=== PATIENT | male | born 1960 | race Hispanic/Latino ===

== ENCOUNTER 2017-06-15 12:07 | Emergency (ER) | payer MEDICARE ==
[~2017-06-15 12:07] MED LIST: AMLO10TA2 PO; ASPI-1012 PO; DOXY100T2 PO; FOLI0.8T2 PO; GLYB5 PO; LINA5TAB PO; LISI40TA4 PO; METO50 PO; PENT400T12 PO
[2017-06-15] MEDS ORDERED: ONDANSETRON ODT 4 MG TAB ONE (12:36)
[2017-06-15 12:38] LABS: BASOPHILS % (AUTO) 0.3 % (0.0-5.0); EOSINOPHILS % (AUTO) 0.5 % (0.0-8.0); HEMATOCRIT 31.9 % (42-54); LYMPHOCYTES % (AUTO) 4.9 % (21.0-51.0); MEAN CORPUSCULAR HEMOGLOBIN 28.1 pg (27.0-33.0); MEAN CORPUSCULAR HGB CONC 33.7 g/dL (32.0-36.0); MEAN CORPUSCULAR VOLUME 83.4 fL (79-99); NEUTROPHILS % (AUTO) 88.3 % (40.0-77.0); PLATELET COUNT (AUTO) 289 K/uL (130-400); RED BLOOD CELL COUNT(AUTO) 3.83 MIL/uL (4.50-6.20); RED CELL DISTRIBUTION WIDTH 17.2 % (11.0-15.5); WHITE BLOOD COUNT (AUTO) 11.7 K/uL (4.8-10.8)
[2017-06-15 12:45] LABS: CREATININE 3.3 mg/dL (0.5-1.5); POTASSIUM 4.6 mmol/L (3.5-5.1)
[2017-06-15 12:51] LABS: ALBUMIN 3.7 g/dL (3.5-5.0); BILIRUBIN,TOTAL 0.5 mg/dL (0.2-1.0); TOTAL PROTEIN, SERUM 8.8 g/dL (6.0-8.3)
[2017-06-15 14:49] LABS: AMYLASE 31 U/L (25-115); CREATINE KINASE, TOTAL 130 U/L (21-232); INR 0.94 (0.85-1.15); LIPASE 88 U/L (114-286); PROTHROMBIN TIME 9.9 SEC (9.6-11.6)
== END 2017-06-15 16:39 | disposition home or self-care (01) ==
LOC: EDH 12:07
DX: K52.9 Noninfective gastroenteritis and colitis, unspecified (principal); E11.22 Type 2 diabetes mellitus with diabetic chronic kidney disease; I12.0 Hypertensive chronic kidney disease with stage 5 chronic kidney disease or end stage renal disease; N18.6 End stage renal disease; Z99.2 Dependence on renal dialysis
CPT/HCPCS: 36415; 71045; 80053; 82150; 82550; 82948; 83690; 85025; 85610; 85730; 93005

== ENCOUNTER 2018-05-25 20:57 | Emergency (ER) | payer MEDICARE ==
[~2018-05-25 20:57] MED LIST changes: -AMLO10TA2 PO; +AMLO10TA7 PO
[2018-05-25 21:38] LABS: APPEARANCE,URINE Clear (CLEAR); BILIRUBIN,URINE Negative (NEGATIVE); COLOR,URINE Yellow (YELLOW); GLUCOSE, URINE (UA) 500 mg/dL (NEGATIVE); KETONES,URINE Negative (NEGATIVE); LEUKOCYTE ESTERASE ,URINE Trace (NEGATIVE); NITRATE,URINE Negative (NEGATIVE); OCCULT BLOOD,URINE Moderate (NEGATIVE); PH,URINE 7.5 (5.0-8.0); PROTEIN,URINE >=1000 (NEGATIVE)
[2018-05-25 21:45] LABS: BACTERIA,URINE Few /HPF (None Seen); SQUAMOUS EPITHELIAL CELL,UR None Seen /HPF (0-2)
[2018-05-25 21:45] LABS: BASOPHILS % (AUTO) 0.7 % (0.0-5.0); EOSINOPHILS % (AUTO) 0.5 % (0.0-8.0); HEMATOCRIT 32.1 % (42-54); LYMPHOCYTES % (AUTO) 8.1 % (21.0-51.0); MEAN CORPUSCULAR HEMOGLOBIN 29.6 pg (27.0-33.0); MEAN CORPUSCULAR HGB CONC 33.8 g/dL (32.0-36.0); MEAN CORPUSCULAR VOLUME 87.3 fL (79-99); MONOCYTES % (AUTO) 10.3 % (3.0-13.0); NEUTROPHILS % (AUTO) 80.4 % (40.0-77.0); PLATELET COUNT (AUTO) 171 K/uL (130-400); RED BLOOD CELL COUNT(AUTO) 3.68 MIL/uL (4.50-6.20); RED CELL DISTRIBUTION WIDTH 16.5 % (11.0-15.5); WHITE BLOOD COUNT (AUTO) 9.7 K/uL (4.8-10.8)
[2018-05-25 22:04] LABS: INR 0.98 (0.85-1.15); PARTIAL THROMBOPLASTIN TIME 33.3 SEC (26.3-35.5); PROTHROMBIN TIME 10.3 SEC (9.6-11.6)
[2018-05-25 22:10] LABS: RAPID GROUP A STREP NEGATIVE (NEGATIVE)
[2018-05-25 22:13] LABS: ALANINE AMINOTRANSFERASE 16 U/L (12-78); ALBUMIN 3.5 g/dL (3.5-5.0); ASPARTATE AMINOTRANSFERASE 17 U/L (10-37); BILIRUBIN,TOTAL 0.5 mg/dL (0.2-1.0); CARBON DIOXIDE 26 mmol/L (21-32); CHLORIDE 91 mmol/L (101-111); CREATINE KINASE, TOTAL 196 U/L (21-232); GLOMERULAR FILTR. RATE CALC 7 mL/min (>60); GLUCOSE,RANDOM 317 mg/dL (70-105); MYOGLOBIN 452 ng/mL (10-92); POTASSIUM 4.8 mmol/L (3.5-5.1); SODIUM SERUM 129 mmol/L (136-145); TOTAL PROTEIN, SERUM 7.5 g/dL (6.0-8.3); TROPONIN I < 0.04 ng/mL (0.00-0.06); UREA NITROGEN, BLOOD 45 mg/dL (7-18)
[2018-05-25] MEDS ORDERED: ZOSYN 3.375GM+NS 50ML 50 ML IV ONE (22:17)
[2018-05-25] MEDS ORDERED: ACETAMINOPHEN 325 MG TAB ONE (22:17)
[2018-05-25] MEDS ORDERED: SODIUM CHLORIDE 0.9% 50 ML IV ONE (22:17)
[2018-05-25 22:25] LABS: CREATININE 8.1 mg/dL (0.5-1.5)
== END 2018-05-25 23:59 | disposition home or self-care (01) ==
LOC: EDH 20:57
DX: N39.0 Urinary tract infection, site not specified (principal); R05 Cough; E11.22 Type 2 diabetes mellitus with diabetic chronic kidney disease; I12.0 Hypertensive chronic kidney disease with stage 5 chronic kidney disease or end stage renal disease; N18.6 End stage renal disease; Z99.2 Dependence on renal dialysis; Z89.421 Acquired absence of other right toe(s)
CPT/HCPCS: 36415; 71045; 80053; 81001; 82550; 83605; 83874; 84484; 85025; 85610; 85730; 87040 ×2; 87077; 87088; 87186; 87804 ×2; 87880; 93005; 96365; 99284; J2543

== ENCOUNTER 2018-07-02 20:16 | Inpatient (IN) | payer MEDICARE, OTHER | END 2018-07-07 14:25 | disposition home or self-care (01) | LOC: EDH 20:16 → 3CH 07-03 14:20 → EDHIP 20:40 | DX: A41.9 Sepsis, unspecified organism (principal); J18.9 Pneumonia, unspecified organism; J96.01 Acute respiratory failure with hypoxia; N18.6 End stage renal disease; Z99.2 Dependence on renal dialysis ==

== ENCOUNTER 2018-07-24 17:56 | Inpatient (IN) | payer MEDICARE, OTHER ==
[~2018-07-24] VITALS: Ht 167.6 cm; Wt 1.0 kg
[~2018-07-24 17:56] MED LIST changes: -DOXY100T2 PO; +GLIP10TA9 PO; -GLYB5 PO; +LEVO500T2 PO; -LINA5TAB PO; -LISI40TA4 PO; +LOSA50TA64 PO; +SEVE800T7 PO
[2018-07-24] MEDS ORDERED: NITROGLYCERIN 1GM/1 INCH PACKET TD ONE (18:39)
[2018-07-24 18:53] LABS: CARBON DIOXIDE 28 mmol/L (21-32); CHLORIDE 94 mmol/L (101-111); CREATININE 5.4 mg/dL (0.5-1.5); GLOMERULAR FILTR. RATE CALC 12 mL/min (>60); GLUCOSE,RANDOM 321 mg/dL (70-105); POTASSIUM 4.1 mmol/L (3.5-5.1); SODIUM SERUM 133 mmol/L (136-145); UREA NITROGEN, BLOOD 34 mg/dL (7-18)
[2018-07-24 18:58] LABS: INR 1.02 (0.85-1.15); PARTIAL THROMBOPLASTIN TIME 30.7 SEC (26.3-35.5); PROTHROMBIN TIME 10.7 SEC (9.6-11.6)
[2018-07-24 19:00] LABS: BASOPHILS % (AUTO) 0.5 % (0.0-5.0); EOSINOPHILS % (AUTO) 0.2 % (0.0-8.0); HEMATOCRIT 28.9 % (42-54); LYMPHOCYTES % (AUTO) 3.2 % (21.0-51.0); MEAN CORPUSCULAR HEMOGLOBIN 28.1 pg (27.0-33.0); MEAN CORPUSCULAR HGB CONC 32.8 g/dL (32.0-36.0); MEAN CORPUSCULAR VOLUME 85.8 fL (79-99); MONOCYTES % (AUTO) 4.8 % (3.0-13.0); NEUTROPHILS % (AUTO) 91.3 % (40.0-77.0); PLATELET COUNT (AUTO) 248 K/uL (130-400); RED BLOOD CELL COUNT(AUTO) 3.37 MIL/uL (4.50-6.20); RED CELL DISTRIBUTION WIDTH 17.3 % (11.0-15.5); WHITE BLOOD COUNT (AUTO) 16.3 K/uL (4.8-10.8)
[2018-07-24 19:14] LABS: ALANINE AMINOTRANSFERASE 18 U/L (12-78); ALBUMIN 3.5 g/dL (3.5-5.0); ASPARTATE AMINOTRANSFERASE 20 U/L (10-37); BILIRUBIN,TOTAL 0.6 mg/dL (0.2-1.0); CREATINE KINASE, TOTAL 102 U/L (21-232); MYOGLOBIN 350 ng/mL (10-92); TOTAL PROTEIN, SERUM 8.1 g/dL (6.0-8.3); TROPONIN I < 0.04 ng/mL (0.00-0.06)
[2018-07-24] MEDS ORDERED: CEFTRIAXONE SODIUM 1 GM ONE (20:38)
[2018-07-24] MEDS ORDERED: AZITHROMYCIN 250 MG TABLET PO ONE (20:39)
[2018-07-24] MEDS ORDERED: SODIUM CHLORIDE 0.9% 1000ML 1,000 ML IV SCH (22:01)
[2018-07-24] MEDS ORDERED: ACETAMINOPHEN 325 MG TAB PO PRN ×2 (22:15)
[2018-07-24] MEDS: AZITHROMYCIN 500MG+NS 250ML 250 ML IV SCH (23:00)
[2018-07-24] MEDS: ALBUTEROL SULFATE 0.083% 2.5 MG/3 ML INH IH SCH (23:15)
[2018-07-25 03:29] LABS: APPEARANCE,URINE Cloudy (CLEAR); BILIRUBIN,URINE Small (NEGATIVE); COLOR,URINE Dark Yellow (YELLOW); GLUCOSE, URINE (UA) 500 mg/dL (NEGATIVE); KETONES,URINE Trace mg/dL (NEGATIVE); LEUKOCYTE ESTERASE ,URINE Small (NEGATIVE); NITRATE,URINE Negative (NEGATIVE); OCCULT BLOOD,URINE Small (NEGATIVE); PH,URINE 5.5 (5.0-8.0); PROTEIN,URINE >=1000 mg/dL (NEGATIVE)
[2018-07-25 03:39] LABS: AMORPHOUS SEDIMENT,UR Moderate /LPF (None Seen); BACTERIA,URINE Moderate /HPF (None Seen); MUCUS,URINE Few LPF (None Seen); SQUAMOUS EPITHELIAL CELL,UR Few /HPF (0-2); WBC,URINE 26-50 /HPF (0-1)
[2018-07-25] MEDS: ALBUTEROL SULFATE 0.083% 2.5 MG/3 ML INH IH SCH ×3 (05:36→18:41)
[2018-07-25] MEDS: METOPROLOL TARTRATE 50 MG TAB PO SCH ×2 (09:00→20:55)
[2018-07-25] MEDS: ENOXAPARIN SODIUM 30 MG/0.3 ML SQ SCH ×2 (09:00→20:57)
[2018-07-25] MEDS: FOLIC ACID/VITAMIN B COMP W-C 1 MG CAPSULE PO SCH (09:00)
[2018-07-25] MEDS: AMLODIPINE BESYLATE 5 MG TAB PO SCH (09:00)
[2018-07-25] MEDS: PENTOXIFYLLINE 400 MG TABLET.SA PO SCH ×2 (09:00→20:55)
[2018-07-25] MEDS: LOSARTAN 50 MG TABLET PO SCH (09:00)
[2018-07-25] MEDS: FAMOTIDINE/PF 20 MG/2 ML VIAL IV SCH ×2 (09:00→20:56)
[2018-07-25] MEDS ORDERED: SEVELAMER HCL 800 MG TABLET ONE (09:03)
[2018-07-25] MEDS ORDERED: AMLODIPINE BESYLATE 5 MG TAB PO ONE (10:32)
[2018-07-25] MEDS ORDERED: METOPROLOL TARTRATE 50 MG TAB ONE (10:32)
[2018-07-25] MEDS ORDERED: ENOXAPARIN SODIUM 30 MG/0.3 ML SQ ONE (10:33)
[2018-07-25] MEDS ORDERED: LOSARTAN 50 MG TABLET ONE (10:33)
[2018-07-25] MEDS ORDERED: FAMOTIDINE/PF 20 MG/2 ML VIAL IV ONE (10:34)
[2018-07-25] MEDS ORDERED: GLUCAGON 1MG KIT 1 MG ML IM PRN (10:45)
[2018-07-25] MEDS ORDERED: DEXTROSE 50%-WATER 50 ML DISP.SYRIN IV PRN (10:45)
--- NOTE | 2018-07-25 10:51 | NUR ---
CHRISTINE met with pt and Erika [phone]. Pt is independent, drives, goes to [facility], [facility], drives self, has walker no in home care services, has rx coverages. Plan is home at vt Addendum: 07/25/18 at 1052 by ARELI SINGH Amended: Links added.
[2018-07-25] MEDS ORDERED: IPRATROPIUM/ALBUTEROL SULFATE 3 ML SOLUTION IH ONE (11:13)
[2018-07-25 12:00] VITALS: BP 145/82
[2018-07-25 16:00] VITALS: BP 140/73
[2018-07-25] MEDS: INSULIN HUMULIN R 100 UNIT/ML 3ML SQ SCH ×2 (17:17→20:52)
[2018-07-25] MEDS: SEVELAMER HCL 800 MG TABLET PO SCH (17:19)
[2018-07-25 19:20] VITALS: BP 123/72
[2018-07-25] MEDS: CEFTRIAXONE SODIUM 1 GM IVP SCH (20:56)
[2018-07-26] MEDS: AZITHROMYCIN 500MG+NS 250ML 250 ML IV SCH ×2 (00:08→21:22)
[2018-07-26] MEDS: ALBUTEROL SULFATE 0.083% 2.5 MG/3 ML INH IH SCH ×4 (00:28→19:00)
[2018-07-26 00:30] VITALS: BP 124/77
[2018-07-26 04:35] VITALS: BP 138/80
[2018-07-26 06:14] LABS: BASOPHILS % (AUTO) 0.8 % (0.0-5.0); EOSINOPHILS % (AUTO) 0.6 % (0.0-8.0); HEMATOCRIT 24.7 % (42-54); LYMPHOCYTES % (AUTO) 11.1 % (21.0-51.0); MEAN CORPUSCULAR HEMOGLOBIN 28.9 pg (27.0-33.0); MEAN CORPUSCULAR HGB CONC 33.5 g/dL (32.0-36.0); MEAN CORPUSCULAR VOLUME 86.4 fL (79-99); MONOCYTES % (AUTO) 8.9 % (3.0-13.0); NEUTROPHILS % (AUTO) 78.6 % (40.0-77.0); NUCLEATED RED BLOOD CELLS 0.1 % (0.0-0.19); PLATELET COUNT (AUTO) 203 K/uL (130-400); RED BLOOD CELL COUNT(AUTO) 2.85 MIL/uL (4.50-6.20); RED CELL DISTRIBUTION WIDTH 17.4 % (11.0-15.5); WHITE BLOOD COUNT (AUTO) 9.5 K/uL (4.8-10.8)
[2018-07-26 06:38] LABS: CREATININE 8.2 mg/dL (0.5-1.5)
[2018-07-26] MEDS: INSULIN HUMULIN R 100 UNIT/ML 3ML SQ SCH ×4 (06:54→21:44)
[2018-07-26 07:00] VITALS: BP 146/85
--- NOTE | 2018-07-26 08:00 | NUR ---
PATIENT IS ALERT AND STABLE, HEMODIALYSIS TREATMENT IS IN PROGRESS AT THIS TIME, PATIENT REQUESTS TO TAKE HIS MEDICATIONS AFTER THE TREATMENT. PLAN OF CARE DISCUSSED WITH VERBALIZATION OF UNDERSTANDING.
[2018-07-26] MEDS ORDERED: SODIUM CHLORIDE 0.9% 1000ML 1,000 ML IV PRN (08:15)
[2018-07-26] MEDS ORDERED: EPOETIN ALFA 10,000 UNIT/ML VIAL SQ SCH (10:15)
--- NOTE | 2018-07-26 10:32 | NUR ---
HEMODIALYSIS TREATMENT IS COMPLETED AT THIS TIME, WILL ADMINISTER MORNING MEDS.
[2018-07-26] MEDS: SEVELAMER HCL 800 MG TABLET PO SCH ×3 (10:35→17:43)
[2018-07-26] MEDS: FAMOTIDINE/PF 20 MG/2 ML VIAL IV SCH ×2 (10:36→21:21)
[2018-07-26] MEDS: METOPROLOL TARTRATE 50 MG TAB PO SCH ×2 (10:36→21:21)
[2018-07-26] MEDS: FOLIC ACID/VITAMIN B COMP W-C 1 MG CAPSULE PO SCH (10:36)
[2018-07-26] MEDS: AMLODIPINE BESYLATE 5 MG TAB PO SCH (10:37)
[2018-07-26] MEDS: PENTOXIFYLLINE 400 MG TABLET.SA PO SCH ×2 (10:37→21:21)
[2018-07-26] MEDS: LOSARTAN 50 MG TABLET PO SCH (10:37)
[2018-07-26] MEDS: ENOXAPARIN SODIUM 30 MG/0.3 ML SQ SCH ×2 (10:41→21:22)
[2018-07-26 11:00] VITALS: BP 138/87
[2018-07-26] MEDS: GUAIFENESIN-CODEINE 5 ML SYRUP PO PRN (15:36)
[2018-07-26 16:00] VITALS: BP 128/66
[2018-07-26] MEDS: ONDANSETRON HCL 4 MG/2 ML VIAL IV PRN (17:49)
[2018-07-26 19:30] VITALS: BP 135/68
[2018-07-26] MEDS: CEFTRIAXONE SODIUM 1 GM IVP SCH (21:21)
[2018-07-27] MEDS: ALBUTEROL SULFATE 0.083% 2.5 MG/3 ML INH IH SCH ×5 (00:04→23:45)
[2018-07-27 00:11] VITALS: BP 115/62
[2018-07-27 04:33] VITALS: BP 114/59
[2018-07-27] MEDS: INSULIN HUMULIN R 100 UNIT/ML 3ML SQ SCH ×4 (05:34→21:51)
[2018-07-27 05:41] LABS: MEAN CORPUSCULAR HEMOGLOBIN 28.8 pg (27.0-33.0); MEAN CORPUSCULAR HGB CONC 33.3 g/dL (32.0-36.0); MEAN CORPUSCULAR VOLUME 86.7 fL (79-99); NUCLEATED RED BLOOD CELLS 0.2 % (0.0-0.19); PLATELET COUNT (AUTO) 211 K/uL (130-400); RED BLOOD CELL COUNT(AUTO) 2.65 MIL/uL (4.50-6.20); RED CELL DISTRIBUTION WIDTH 17.5 % (11.0-15.5); WHITE BLOOD COUNT (AUTO) 8.6 K/uL (4.8-10.8)
[2018-07-27 06:02] LABS: CREATININE 6.3 mg/dL (0.5-1.5); POTASSIUM 4.7 mmol/L (3.5-5.1)
[2018-07-27 07:00] VITALS: BP 132/78
[2018-07-27 08:28] LABS: HEPATITIS Bs ANTIGEN SCREEN P Negative (Negative)
[2018-07-27] MEDS: SEVELAMER HCL 800 MG TABLET PO SCH ×3 (08:39→16:52)
[2018-07-27] MEDS: FAMOTIDINE/PF 20 MG/2 ML VIAL IV SCH ×2 (08:40→21:41)
[2018-07-27] MEDS: PENTOXIFYLLINE 400 MG TABLET.SA PO SCH ×2 (08:42→21:41)
[2018-07-27] MEDS: FOLIC ACID/VITAMIN B COMP W-C 1 MG CAPSULE PO SCH (08:42)
[2018-07-27] MEDS: METOPROLOL TARTRATE 50 MG TAB PO SCH ×2 (08:43→21:41)
[2018-07-27] MEDS: AMLODIPINE BESYLATE 5 MG TAB PO SCH (08:43)
[2018-07-27] MEDS: LOSARTAN 50 MG TABLET PO SCH (08:44)
[2018-07-27] MEDS: ENOXAPARIN SODIUM 30 MG/0.3 ML SQ SCH ×2 (08:46→21:46)
[2018-07-27 11:00] VITALS: BP 129/67
[2018-07-27] MEDS: EPOETIN ALFA 10,000 UNIT/ML VIAL SQ SCH ×2 (11:45→18:34)
[2018-07-27] MEDS: GUAIFENESIN-CODEINE 5 ML SYRUP PO PRN (12:21)
[2018-07-27] MEDS: ONDANSETRON HCL 4 MG/2 ML VIAL IV PRN (12:23)
--- NOTE | 2018-07-27 12:26 | NUR ---
REPORTED EMESIS EPISODES X 2, OBSERVED YELLOW BILE WITH FOOD PARTICLES. MEDICATED WITH ZOFRAN IV.
[2018-07-27 16:00] VITALS: BP 127/94
[2018-07-27 19:25] VITALS: BP 113/61
[2018-07-27] MEDS: CEFTRIAXONE SODIUM 1 GM IVP SCH (21:41)
[2018-07-27] MEDS: AZITHROMYCIN 500MG+NS 250ML 250 ML IV SCH (21:41)
[2018-07-28 00:28] VITALS: BP 99/69
[2018-07-28 04:25] VITALS: BP 125/75
[2018-07-28] MEDS: INSULIN HUMULIN R 100 UNIT/ML 3ML SQ SCH ×4 (05:11→21:46)
[2018-07-28] MEDS: ALBUTEROL SULFATE 0.083% 2.5 MG/3 ML INH IH SCH ×4 (06:26→23:24)
[2018-07-28] MEDS: SEVELAMER HCL 800 MG TABLET PO SCH ×3 (08:00→16:43)
[2018-07-28 09:01] VITALS: BP 159/87
[2018-07-28] MEDS: AMLODIPINE BESYLATE 5 MG TAB PO SCH (10:06)
[2018-07-28] MEDS: METOPROLOL TARTRATE 50 MG TAB PO SCH ×2 (10:07→21:39)
[2018-07-28] MEDS: LOSARTAN 50 MG TABLET PO SCH (10:07)
[2018-07-28] MEDS: MEROPENEM 500 MG VIAL IVP SCH (10:07)
[2018-07-28] MEDS: PENTOXIFYLLINE 400 MG TABLET.SA PO SCH ×2 (10:07→21:39)
[2018-07-28] MEDS: FAMOTIDINE/PF 20 MG/2 ML VIAL IV SCH ×2 (10:07→21:39)
[2018-07-28] MEDS: FOLIC ACID/VITAMIN B COMP W-C 1 MG CAPSULE PO SCH (10:07)
[2018-07-28] MEDS: ENOXAPARIN SODIUM 30 MG/0.3 ML SQ SCH ×2 (10:08→21:40)
[2018-07-28 12:59] VITALS: BP 144/83
--- NOTE | 2018-07-28 13:00 | NUR ---
MD ROUNDS DR. WITT VISITED WITH PATIENT. POC DISCUSSED. NEW ORDERS RECEIVED AND CARRIED OUT.
[2018-07-28] MEDS: LEVOFLOXACIN 500 MG/D5W 100 ML 100 ML IV SCH (16:44)
[2018-07-28 17:15] VITALS: BP 129/88
[2018-07-28 20:22] VITALS: BP 136/84
[2018-07-29 00:48] VITALS: BP 128/74
[2018-07-29 04:07] VITALS: BP 143/83
[2018-07-29] MEDS: INSULIN HUMULIN R 100 UNIT/ML 3ML SQ SCH ×4 (05:58→21:00)
[2018-07-29] MEDS: ALBUTEROL SULFATE 0.083% 2.5 MG/3 ML INH IH SCH ×4 (07:11→23:35)
[2018-07-29 08:00] VITALS: BP 137/63
[2018-07-29] MEDS: FOLIC ACID/VITAMIN B COMP W-C 1 MG CAPSULE PO SCH (08:28)
[2018-07-29] MEDS: METOPROLOL TARTRATE 50 MG TAB PO SCH ×2 (08:28→22:14)
[2018-07-29] MEDS: SEVELAMER HCL 800 MG TABLET PO SCH ×3 (08:28→16:13)
[2018-07-29] MEDS: PENTOXIFYLLINE 400 MG TABLET.SA PO SCH ×2 (08:28→22:14)
[2018-07-29] MEDS: ENOXAPARIN SODIUM 30 MG/0.3 ML SQ SCH ×2 (08:29→22:20)
[2018-07-29] MEDS: LOSARTAN 50 MG TABLET PO SCH (08:29)
[2018-07-29] MEDS: AMLODIPINE BESYLATE 5 MG TAB PO SCH (08:29)
[2018-07-29] MEDS: FAMOTIDINE/PF 20 MG/2 ML VIAL IV SCH ×2 (08:29→22:14)
[2018-07-29] MEDS: MEROPENEM 500 MG VIAL IVP SCH (08:34)
[2018-07-29] MEDS: GUAIFENESIN-CODEINE 5 ML SYRUP PO PRN (08:38)
[2018-07-29 12:00] VITALS: BP 131/74
[2018-07-29] MEDS: ONDANSETRON HCL 4 MG/2 ML VIAL IV PRN (14:56)
[2018-07-29] MEDS: EPOETIN ALFA 10,000 UNIT/ML VIAL SQ SCH (14:56)
[2018-07-29 16:00] VITALS: BP 136/77
[2018-07-29] MEDS ORDERED: PROMETHAZINE HCL 25 MG/ML 1ML AMPULE IM PRN (16:00)
--- NOTE | 2018-07-29 16:02 | NUR ---
SNF: Spoke w pt and spouse this afternoon to discuss MD recommendations for poss SNF @ [place]. Discussed all options avail in [place]. Per pt/spouse they are interested in [facility]. YG/PC consents signed. Referral faxed to [facility]. Sobeida made aware.
[2018-07-29 21:23] VITALS: BP 159/85
[2018-07-30 00:34] VITALS: BP 153/86
[2018-07-30 03:36] VITALS: BP 133/78
[2018-07-30] MEDS: INSULIN HUMULIN R 100 UNIT/ML 3ML SQ SCH ×4 (05:42→21:00)
[2018-07-30] MEDS: ALBUTEROL SULFATE 0.083% 2.5 MG/3 ML INH IH SCH ×3 (06:40→18:00)
[2018-07-30] MEDS: SEVELAMER HCL 800 MG TABLET PO SCH ×3 (09:00→16:38)
[2018-07-30] MEDS: LOSARTAN 50 MG TABLET PO SCH (09:27)
[2018-07-30] MEDS: AMLODIPINE BESYLATE 5 MG TAB PO SCH (09:27)
[2018-07-30] MEDS: PENTOXIFYLLINE 400 MG TABLET.SA PO SCH ×2 (09:27→20:56)
[2018-07-30] MEDS: ONDANSETRON HCL 4 MG/2 ML VIAL IV PRN ×2 (09:27→22:55)
[2018-07-30] MEDS: FAMOTIDINE/PF 20 MG/2 ML VIAL IV SCH ×2 (09:27→20:57)
[2018-07-30] MEDS: METOPROLOL TARTRATE 50 MG TAB PO SCH ×2 (09:27→20:56)
[2018-07-30] MEDS: FOLIC ACID/VITAMIN B COMP W-C 1 MG CAPSULE PO SCH (09:27)
[2018-07-30] MEDS: ENOXAPARIN SODIUM 30 MG/0.3 ML SQ SCH ×2 (09:28→20:57)
[2018-07-30] MEDS: MEROPENEM 500 MG VIAL IVP SCH (09:34)
[2018-07-30 10:08] VITALS: BP 163/96
[2018-07-30] MEDS: EPOETIN ALFA 10,000 UNIT/ML VIAL SQ SCH (11:45)
[2018-07-30] MEDS: LEVOFLOXACIN 500 MG/D5W 100 ML 100 ML IV SCH (12:23)
[2018-07-30 12:59] VITALS: BP 145/77
[2018-07-30 16:59] VITALS: BP 114/64
[2018-07-30 21:31] VITALS: BP 145/79
[2018-07-31] VITALS (7 sets, daily range): BP systolic 119–164; BP diastolic 51–96
[2018-07-31] MEDS: ALBUTEROL SULFATE 0.083% 2.5 MG/3 ML INH IH SCH ×5 (00:03→23:04)
[2018-07-31] MEDS: INSULIN HUMULIN R 100 UNIT/ML 3ML SQ SCH ×4 (06:54→21:04)
[2018-07-31 07:05] LABS: BASOPHILS % (AUTO) 0.5 % (0.0-5.0); EOSINOPHILS % (AUTO) 0.8 % (0.0-8.0); HEMATOCRIT 25.4 % (42-54); LYMPHOCYTES % (AUTO) 11.3 % (21.0-51.0); MEAN CORPUSCULAR HEMOGLOBIN 28.6 pg (27.0-33.0); MEAN CORPUSCULAR HGB CONC 33.3 g/dL (32.0-36.0); MEAN CORPUSCULAR VOLUME 85.8 fL (79-99); MONOCYTES % (AUTO) 8.6 % (3.0-13.0); NEUTROPHILS % (AUTO) 78.8 % (40.0-77.0); NUCLEATED RED BLOOD CELLS 0.3 % (0.0-0.19); PLATELET COUNT (AUTO) 268 K/uL (130-400); RED BLOOD CELL COUNT(AUTO) 2.96 MIL/uL (4.50-6.20); RED CELL DISTRIBUTION WIDTH 17.8 % (11.0-15.5); WHITE BLOOD COUNT (AUTO) 7.8 K/uL (4.8-10.8)
--- NOTE | 2018-07-31 07:09 | NUR ---
VENEER STOCK GRADER MALISSA, VENEER STOCK GRADER FOR HOSPITALIST, IN TO MAKE ROUNDS. NEW ORDERS GIVEN, PLEASE REFER TO CPOE.
[2018-07-31 07:41] LABS: POTASSIUM 4.3 mmol/L (3.5-5.1)
[2018-07-31 07:48] LABS: CREATININE 9.5 mg/dL (0.5-1.5)
[2018-07-31] MEDS: AMLODIPINE BESYLATE 5 MG TAB PO SCH (09:00)
[2018-07-31] MEDS: METOPROLOL TARTRATE 50 MG TAB PO SCH ×2 (09:00→20:58)
[2018-07-31] MEDS: LOSARTAN 50 MG TABLET PO SCH (09:00)
[2018-07-31] MEDS: ENOXAPARIN SODIUM 30 MG/0.3 ML SQ SCH ×2 (09:00→20:57)
[2018-07-31] MEDS: SEVELAMER HCL 800 MG TABLET PO SCH ×3 (09:08→17:06)
[2018-07-31] MEDS: PENTOXIFYLLINE 400 MG TABLET.SA PO SCH ×2 (09:08→20:58)
[2018-07-31] MEDS: FOLIC ACID/VITAMIN B COMP W-C 1 MG CAPSULE PO SCH (09:08)
[2018-07-31] MEDS: FAMOTIDINE/PF 20 MG/2 ML VIAL IV SCH ×2 (09:21→20:57)
[2018-07-31] MEDS: MEROPENEM 500 MG VIAL IVP SCH (10:52)
[2018-07-31] MEDS: EPOETIN ALFA 10,000 UNIT/ML VIAL SQ SCH (17:06)
--- NOTE | 2018-07-31 20:34 | NUR ---
cm note spoke to dakota at [facility], pt is accepted, when ready for dc. pt pending for juan david surgery.
[2018-08-01] VITALS (19 sets, daily range): BP systolic 133–189; BP diastolic 59–101
[2018-08-01 05:58] LABS: BASOPHILS % (AUTO) 0.9 % (0.0-5.0); EOSINOPHILS % (AUTO) 1.2 % (0.0-8.0); HEMATOCRIT 25.8 % (42-54); LYMPHOCYTES % (AUTO) 8.8 % (21.0-51.0); MEAN CORPUSCULAR HEMOGLOBIN 28.5 pg (27.0-33.0); MEAN CORPUSCULAR HGB CONC 32.9 g/dL (32.0-36.0); MEAN CORPUSCULAR VOLUME 86.7 fL (79-99); NEUTROPHILS % (AUTO) 78.1 % (40.0-77.0); NUCLEATED RED BLOOD CELLS 0.2 % (0.0-0.19); PLATELET COUNT (AUTO) 300 K/uL (130-400); RED BLOOD CELL COUNT(AUTO) 2.97 MIL/uL (4.50-6.20); RED CELL DISTRIBUTION WIDTH 18.1 % (11.0-15.5); WHITE BLOOD COUNT (AUTO) 7.5 K/uL (4.8-10.8)
[2018-08-01 06:15] LABS: CREATININE 6.5 mg/dL (0.5-1.5); POTASSIUM 4.7 mmol/L (3.5-5.1)
[2018-08-01] MEDS: INSULIN HUMULIN R 100 UNIT/ML 3ML SQ SCH ×4 (06:32→20:26)
[2018-08-01] MEDS: ALBUTEROL SULFATE 0.083% 2.5 MG/3 ML INH IH SCH ×4 (06:43→23:12)
[2018-08-01] MEDS: ENOXAPARIN SODIUM 30 MG/0.3 ML SQ SCH ×2 (09:00→19:58)
[2018-08-01] MEDS: MEROPENEM 500 MG VIAL IVP SCH ×2 (09:27→10:12)
[2018-08-01] MEDS ORDERED: HEPARIN SODIUM 1000UNIT/ML 10ML VIAL ONE (09:48)
[2018-08-01] MEDS ORDERED: LIDOCAINE PF 2% 5ML ABBOJECT ONE (10:34)
[2018-08-01] MEDS ORDERED: DEXAMETHASONE SOD PHOSPHATE 10MG/ML 1ML VIAL ONE (10:34)
[2018-08-01] MEDS ORDERED: PROPOFOL 10 MG/ML 20ML VIAL IV ONE (10:34)
[2018-08-01] MEDS ORDERED: ONDANSETRON HCL 4 MG/2 ML VIAL ONE (10:34)
[2018-08-01] MEDS ORDERED: MIDAZOLAM HCL 1 MG/ML 2ML VIAL ONE (10:34)
[2018-08-01] MEDS ORDERED: FENTANYL CITRATE PF 50 MCG/1 ML 2ML VIAL ONE (10:35)
[2018-08-01] MEDS ORDERED: ROCURONIUM 10MG/1ML SYR 10 MG/ML ML ONE (10:55)
[2018-08-01] MEDS ORDERED: GLYCOPYRROLATE 1 MG/5 ML SYRINGE ONE (11:23)
[2018-08-01] MEDS ORDERED: NEOSTIGMINE 5MG/5ML SYR IV ONE (11:24)
[2018-08-01] MEDS ORDERED: SODIUM CHLORIDE 0.9% 1000ML 1,000 ML IV SCH (11:28)
[2018-08-01] MEDS ORDERED: MORPHINE SULFATE 2 MG/ML 1ML SYG IV PRN (11:30)
[2018-08-01] MEDS ORDERED: MEPERIDINE-PF 25 MG/ML SYG ONE (11:52)
[2018-08-01] MEDS: SEVELAMER HCL 800 MG TABLET PO SCH ×3 (12:00→16:12)
[2018-08-01] MEDS: ONDANSETRON HCL 4 MG/2 ML VIAL IV PRN (12:42)
[2018-08-01] MEDS: FOLIC ACID/VITAMIN B COMP W-C 1 MG CAPSULE PO SCH (13:12)
[2018-08-01] MEDS: LOSARTAN 50 MG TABLET PO SCH (13:13)
[2018-08-01] MEDS: PENTOXIFYLLINE 400 MG TABLET.SA PO SCH ×2 (13:13→19:57)
[2018-08-01] MEDS: AMLODIPINE BESYLATE 5 MG TAB PO SCH (13:13)
[2018-08-01] MEDS: METOPROLOL TARTRATE 50 MG TAB PO SCH ×2 (13:13→19:57)
[2018-08-01] MEDS: FAMOTIDINE/PF 20 MG/2 ML VIAL IV SCH ×2 (13:14→19:57)
--- NOTE | 2018-08-01 16:11 | NUR ---
INTERVAL NOTE- DCP REMAINS [facility] SPOKE TO SERJIO FROM [facility], PT ACCEPTED PENDING AUTH , NOW HAVING [facility] KEL[facility]IN TODAY- POSS DC 24-48 HRS. Addendum: 08/01/18 at 1612 by KALYN CAPUTO RN CM Amended: Links added.
[2018-08-01] MEDS: LEVOFLOXACIN 500 MG/D5W 100 ML 100 ML IV SCH (16:12)
--- NOTE | 2018-08-01 17:18 | NUR ---
Nutrition intervention : Nutrition notification for los X8. Pt admitted for RLL pneumonia. Pt currently on CC75gm, Renal dialysis diet with good oral intake. At time of RD visit pt returned from cholecystectomy and asleep. Pt's at bedside provided nutritional feedback however no nutritional concerns noted. RD to return when pt is awake and alert for additional nutrition intervention. Recommendations: Continue current diet therapy. Addendum: 08/01/18 at [address] Amended: Links added.
[2018-08-02 00:32] VITALS: BP 137/81
[2018-08-02 04:00] VITALS: BP 132/84
[2018-08-02 04:40] VITALS: BP 132/84
[2018-08-02] MEDS: INSULIN HUMULIN R 100 UNIT/ML 3ML SQ SCH ×3 (06:04→17:12)
[2018-08-02] MEDS: ALBUTEROL SULFATE 0.083% 2.5 MG/3 ML INH IH SCH ×3 (06:24→18:30)
[2018-08-02 06:28] LABS: BASOPHILS % (AUTO) 0.5 % (0.0-5.0); EOSINOPHILS % (AUTO) 1.1 % (0.0-8.0); HEMATOCRIT 25.2 % (42-54); LYMPHOCYTES % (AUTO) 8.6 % (21.0-51.0); MEAN CORPUSCULAR HEMOGLOBIN 28.7 pg (27.0-33.0); MEAN CORPUSCULAR HGB CONC 33.2 g/dL (32.0-36.0); MEAN CORPUSCULAR VOLUME 86.5 fL (79-99); NEUTROPHILS % (AUTO) 78.8 % (40.0-77.0); NUCLEATED RED BLOOD CELLS 0.1 % (0.0-0.19); PLATELET COUNT (AUTO) 295 K/uL (130-400); RED BLOOD CELL COUNT(AUTO) 2.92 MIL/uL (4.50-6.20); RED CELL DISTRIBUTION WIDTH 17.9 % (11.0-15.5); WHITE BLOOD COUNT (AUTO) 8.5 K/uL (4.8-10.8)
[2018-08-02 06:39] LABS: POTASSIUM 4.8 mmol/L (3.5-5.1)
[2018-08-02 06:42] LABS: CREATININE 8.2 mg/dL (0.5-1.5)
[2018-08-02 08:00] VITALS: BP 139/76
[2018-08-02] MEDS: FAMOTIDINE/PF 20 MG/2 ML VIAL IV SCH (09:22)
[2018-08-02] MEDS: SEVELAMER HCL 800 MG TABLET PO SCH ×3 (09:23→17:08)
[2018-08-02] MEDS: FOLIC ACID/VITAMIN B COMP W-C 1 MG CAPSULE PO SCH (09:23)
[2018-08-02 12:00] VITALS: BP 147/80
[2018-08-02] MEDS: METOPROLOL TARTRATE 50 MG TAB PO SCH (12:55)
[2018-08-02] MEDS: AMLODIPINE BESYLATE 5 MG TAB PO SCH (12:55)
[2018-08-02] MEDS: PENTOXIFYLLINE 400 MG TABLET.SA PO SCH (12:55)
[2018-08-02] MEDS: LOSARTAN 50 MG TABLET PO SCH (12:55)
[2018-08-02] MEDS: ENOXAPARIN SODIUM 30 MG/0.3 ML SQ SCH (12:58)
--- NOTE | 2018-08-02 18:19 | NUR ---
DISCHARGE INSTRUCTIONS GIVEN. REPORT GIVEN TO FRANCISCA FIGUEROA AT [facility]. ALL QUESTIONS ANSWERED. IV WILL STAY IN PER FRANCISCA FIGUEROA STATED TO KEEP IN TO CONTINUE IV ANTIBIOTICS AT [facility]. HERE TO TRANSPORT PATIENT TO [facility].. INSTRUCTED PATIENT TO KEEP APPOINTMENT WITH DR. BURKS ON AUGUST 16, AT 9:45
== END 2018-08-02 18:54 | DRG 853 ==
LOC: EDH 17:56 → EDHIP 21:25 → 3CH 07-25 11:36
PROVIDERS: ADMIT Internal Medicine; ATTEND Internal Medicine
PROC: 5A1D70Z Performance of Urinary Filtration, Intermittent, Less than 6 Hours Per Day (ICD-10-PCS; 2018-07-26)
PROC: 5A1D70Z Performance of Urinary Filtration, Intermittent, Less than 6 Hours Per Day (ICD-10-PCS; 2018-07-28)
PROC: 5A1D70Z Performance of Urinary Filtration, Intermittent, Less than 6 Hours Per Day (ICD-10-PCS; 2018-07-31)
PROC: 0FT44ZZ Resection of Gallbladder, Percutaneous Endoscopic Approach (ICD-10-PCS; principal; 2018-08-01 10:32)
PROC: 5A1D70Z Performance of Urinary Filtration, Intermittent, Less than 6 Hours Per Day (ICD-10-PCS; 2018-08-02)
DX: A41.50 Gram-negative sepsis, unspecified (principal); J18.1 Lobar pneumonia, unspecified organism; N18.6 End stage renal disease; N17.9 Acute kidney failure, unspecified; N39.0 Urinary tract infection, site not specified; I12.0 Hypertensive chronic kidney disease with stage 5 chronic kidney disease or end stage renal disease; Z68.1 Body mass index [BMI] 19.9 or less, adult; I31.3 Pericardial effusion (noninflammatory); J98.11 Atelectasis; E11.65 Type 2 diabetes mellitus with hyperglycemia; E87.70 Fluid overload, unspecified; E11.22 Type 2 diabetes mellitus with diabetic chronic kidney disease; B96.20 Unspecified Escherichia coli [E. coli] as the cause of diseases classified elsewhere; K81.1 Chronic cholecystitis; E66.9 Obesity, unspecified; E78.00 Pure hypercholesterolemia, unspecified; K82.8 Other specified diseases of gallbladder; D63.8 Anemia in other chronic diseases classified elsewhere; Z16.24 Resistance to multiple antibiotics; Z16.12 Extended spectrum beta lactamase (ESBL) resistance; Z99.2 Dependence on renal dialysis; Z89.421 Acquired absence of other right toe(s); Z87.01 Personal history of pneumonia (recurrent); Z86.19 Personal history of other infectious and parasitic diseases; Z83.3 Family history of diabetes mellitus; Z82.49 Family history of ischemic heart disease and other diseases of the circulatory system; Z82.3 Family history of stroke; Z82.0 Family history of epilepsy and other diseases of the nervous system
CPT/HCPCS: 36415; 71045; 71250; 74176; 76705; 78227; 80048; 80053; 81001; 82040; 82550; 82570; 82948; 83605; 83874; 84300; 84484; 85025; 85027; 85610; 85730; 86701; 86704; 86706; 87040; 87077; 87088; 87186; 87340; 87390; 87520; 87804; 90935; 93005; 94640; 94664; 97039; A4218; A9537; G0378; J0456; J0696; J0885; J1100; J1644; J1650; J1815; J1956; J2001; J2175; J2185; J2250; J2405; J2704; J2710; J3010; J3490; J7030

== ENCOUNTER 2019-01-10 18:28 | Emergency (ER) | payer MEDICARE ==
[~2019-01-10 18:28] MED LIST changes: +ALBU1.252 IH; +BENZ-39 PO; -FOLI0.8T2 PO; +FOLI0.8T43 PO; +LACT10SO9 PO; +MELA1TAB28 PO; -PENT400T12 PO; +PENT400T72 PO
[2019-01-10 19:19] LABS: APPEARANCE,URINE TURBID (CLEAR); BILIRUBIN,URINE SMALL (NEGATIVE); COLOR,URINE RED (YELLOW); GLUCOSE, URINE (UA) >=1000 mg/dL (NEGATIVE); KETONES,URINE NEGATIVE (NEGATIVE); LEUKOCYTE ESTERASE ,URINE TRACE (NEGATIVE); NITRATE,URINE POSITIVE (NEGATIVE); OCCULT BLOOD,URINE LARGE (NEGATIVE); PROTEIN,URINE >=300 mg/dL (NEGATIVE); UROBILINOGEN,URINE 0.2 mg/dL (0.2-1.0)
[2019-01-10 19:24] LABS: BACTERIA,URINE Rare /HPF (None Seen); RBC,URINE TNTC /HPF (0-1); SQUAMOUS EPITHELIAL CELL,UR Rare /HPF (0-2)
[2019-01-10] MEDS ORDERED: LIDOCAINE HCL-MPF 1% 2ML VIAL ONE ×2 (19:34)
[2019-01-10] MEDS ORDERED: CEFTRIAXONE SODIUM 1 GM ONE (19:34)
== END 2019-01-10 19:44 | disposition home or self-care (01) ==
LOC: EDH 18:28
DX: N39.0 Urinary tract infection, site not specified (principal); R31.9 Hematuria, unspecified; I12.0 Hypertensive chronic kidney disease with stage 5 chronic kidney disease or end stage renal disease; E11.22 Type 2 diabetes mellitus with diabetic chronic kidney disease; N18.6 End stage renal disease; Z90.49 Acquired absence of other specified parts of digestive tract; Z99.2 Dependence on renal dialysis
CPT/HCPCS: 81001; 87077; 87088; 87186; 96372; 99284; J0696; J3490 ×2

== ENCOUNTER 2019-02-22 11:48 | Day surgery (SDC) | payer MEDICARE ==
[2019-02-20 12:22] LABS: BASOPHILS % (AUTO) 1.2 % (0.0-5.0); HEMATOCRIT 32.4 % (42-54); MEAN CORPUSCULAR HEMOGLOBIN 31.8 pg (27.0-33.0); MEAN CORPUSCULAR HGB CONC 33.6 g/dL (32.0-36.0); MEAN CORPUSCULAR VOLUME 94.7 fL (79-99); MONOCYTES % (AUTO) 8.9 % (3.0-13.0); NEUTROPHILS % (AUTO) 60.9 % (40.0-77.0); NUCLEATED RED BLOOD CELLS 0.5 % (0.0-0.19); PLATELET COUNT (AUTO) 252 K/uL (130-400); RED BLOOD CELL COUNT(AUTO) 3.42 MIL/uL (4.50-6.20); RED CELL DISTRIBUTION WIDTH 16.2 % (11.0-15.5); WHITE BLOOD COUNT (AUTO) 8.2 K/uL (4.8-10.8)
[2019-02-20 12:31] LABS: INR 0.96 (0.85-1.15); PROTHROMBIN TIME 10.1 SEC (9.6-11.6)
[2019-02-20 12:34] LABS: POTASSIUM 5.2 mmol/L (3.5-5.1)
[2019-02-20 12:38] LABS: CREATININE 7.9 mg/dL (0.5-1.5)
[2019-02-20 12:50] VITALS: BP 121/65
[2019-02-20 14:01] LABS: APPEARANCE,URINE Cloudy (CLEAR); BILIRUBIN,URINE Negative (NEGATIVE); COLOR,URINE Yellow (YELLOW); GLUCOSE, URINE (UA) 500 mg/dL (NEGATIVE); KETONES,URINE Negative (NEGATIVE); LEUKOCYTE ESTERASE ,URINE Moderate (NEGATIVE); NITRATE,URINE Negative (NEGATIVE); OCCULT BLOOD,URINE Moderate (NEGATIVE); PROTEIN,URINE >=1000 mg/dL (NEGATIVE); UROBILINOGEN,URINE 0.2 mg/dL (0.2-1.0)
[2019-02-20 14:25] LABS: BACTERIA,URINE Moderate /HPF (None Seen); RBC,URINE 26-50 /HPF (0-1); WBC,URINE 51-100 /HPF (0-1)
--- NOTE | 2019-02-21 10:24 | NUR ---
REPORTED H/H 10.9/32.4, NA 130, K 5.2, BUN 46 , BAND TEACHER 7.9, NO NEW ORDERS PER FANNY AMARAL
[2019-02-22] VITALS (8 sets, daily range): BP systolic 136–161; BP diastolic 65–89
[~2019-02-22] VITALS: Ht 170.2 cm; Wt 90.9 kg
[~2019-02-22 11:48] MED LIST changes: -ALBU1.252 IH; -ASPI-1012 PO; -BENZ-39 PO; +CLOP75TA14 PO; -FOLI0.8T43 PO; +FOLI1TAB85 PO; +FURO40TA5 PO; -LACT10SO9 PO; -LEVO500T2 PO; -MELA1TAB28 PO; -METO50 PO; +SODIUM CHLORIDE 0.9% 500ML 500 ML IV SCH
[2019-02-22] MEDS ORDERED: METOPROLOL PO (12:10)
[2019-02-22] MEDS ORDERED: SODIUM CHLORIDE 0.9% 1000ML 1,000 ML IV ONE (12:17)
[2019-02-22] MEDS ORDERED: METO50TA18 PO (12:48)
[2019-02-22] MEDS ORDERED: INSULIN HUMULIN R 100 UNIT/ML 3ML ONE (13:34)
[2019-02-22] MEDS ORDERED: INSULIN HUMULIN R 100 UNIT/ML 3ML SQ SCH (13:45)
--- NOTE | 2019-02-22 13:46 | NUR ---
BLOOD SUGAR BLOOD SUGAR OF 325 AT [address] DOVE, ORDERS TO GIVE 10 UNITS OF REGULAR INSULIN IV THEN RECHECK BLOOD SUGAR IN AN HOUR. REGULAR INSULIN 10 UNITS GIVEN IV. WILL CONTINUE TO MONITOR PT.
[2019-02-22] MEDS ORDERED: MIDAZOLAM HCL 1 MG/ML 2ML VIAL ONE (16:24)
[2019-02-22] MEDS ORDERED: IOHEXOL-350 75 ML VIAL IV ONE (16:24)
[2019-02-22] MEDS ORDERED: IOHEXOL-350 50ML VIAL IV ONE (16:24)
[2019-02-22] MEDS ORDERED: FENTANYL CITRATE PF 50 MCG/1 ML 2ML VIAL ONE (16:25)
[2019-02-22] MEDS ORDERED: LIDOCAINE HCL 2% 20ML ONE (16:25)
[2019-02-22] MEDS ORDERED: HEPARIN SODIUM 1000UNIT/ML 10ML VIAL ONE (16:25)
[2019-02-22] MEDS ORDERED: NITROGLYCERIN 5 MG/ML 10 ML VIAL IV ONE (16:31)
[2019-02-22] MEDS ORDERED: IODIXANOL 320 MG/ML 100 ML VIAL ONE (17:18)
[2019-02-22] MEDS ORDERED: LABETALOL 20 MG/4 ML DISP.SYRIN IV ONE (17:56)
[2019-02-22] MEDS ORDERED: DEXTROSE 50%-WATER 50 ML DISP.SYRIN IV PRN (18:00)
[2019-02-22] MEDS ORDERED: GLUCAGON 1MG KIT 1 MG ML IM PRN (18:00)
[2019-02-22] MEDS ORDERED: LABETALOL HCL 5 MG/ML 20ML VIAL IV ONE (18:01)
--- NOTE | 2019-02-22 19:33 | NUR ---
DIET PT TOLERATED RENAL DIET WELL.
--- NOTE | 2019-02-22 19:55 | NUR ---
DISCHARGE PT DISCHARGED VIA WHEELCHAIR WITH . PT STABLE. NO COMPLAINTS MADE. CATH SITE TO RIGHT GROIN REMAINS SOFT, DRESSING DRY AND INTACT, NO OOZING NO HEMATOMA NOTED. DISCHARGE INSTRUCTIONS GIVEN TO AND PT, VERBALIZED UNDERSTANDING. PER PT/, PT DOES NOT URINATE MUCH, VOIDS VERY SELDOM AND VERY LITTLE.
== END 2019-02-22 19:55 | disposition home or self-care (01) ==
LOC: DAH 11:48
PROVIDERS: ATTEND Internal Medicine Cardiovascular Disease
DX: I70.213 Atherosclerosis of native arteries of extremities with intermittent claudication, bilateral legs (principal); I25.10 Atherosclerotic heart disease of native coronary artery without angina pectoris; E78.5 Hyperlipidemia, unspecified; I12.0 Hypertensive chronic kidney disease with stage 5 chronic kidney disease or end stage renal disease; E11.22 Type 2 diabetes mellitus with diabetic chronic kidney disease; N18.6 End stage renal disease; E03.9 Hypothyroidism, unspecified; Z79.84 Long term (current) use of oral hypoglycemic drugs; Z79.899 Other long term (current) drug therapy; Z83.3 Family history of diabetes mellitus; Z82.49 Family history of ischemic heart disease and other diseases of the circulatory system; Z82.3 Family history of stroke
CPT/HCPCS: 36415; 71045; 75716; 80048; 81001; 82948 ×4; 85025; 85610; 85730; 93005; 93458; 96374; A4215; A4216; A4221; A4222; A4223 ×3; A4606; A4663; C1760; C1769; C1894 ×3; J1644; J1815; J3490 ×3; J7030; Q9967 ×3; J2250; J3010

== ENCOUNTER 2019-06-05 23:36 | Emergency (ER) | payer MEDICARE ==
[~2019-06-05 23:36] MED LIST changes: +METO50TA18 PO; -SODIUM CHLORIDE 0.9% 500ML 500 ML IV SCH
[2019-06-06 00:09] LABS: BASOPHILS % (AUTO) 0.8 % (0.0-5.0); EOSINOPHILS % (AUTO) 1.2 % (0.0-8.0); HEMATOCRIT 34.1 % (42-54); MEAN CORPUSCULAR HGB CONC 33.1 g/dL (32.0-36.0); MEAN CORPUSCULAR VOLUME 87.7 fL (79-99); MONOCYTES % (AUTO) 13.9 % (3.0-13.0); NEUTROPHILS % (AUTO) 73.5 % (40.0-77.0); PLATELET COUNT (AUTO) 261 K/uL (130-400); RED BLOOD CELL COUNT(AUTO) 3.89 MIL/uL (4.50-6.20); RED CELL DISTRIBUTION WIDTH 16.3 % (11.0-15.5); WHITE BLOOD COUNT (AUTO) 12.1 K/uL (4.8-10.8)
[2019-06-06 00:32] LABS: ALBUMIN 3.9 g/dL (3.5-5.0); BILIRUBIN,TOTAL 0.4 mg/dL (0.2-1.0); POTASSIUM 5.2 mmol/L (3.5-5.1); TOTAL PROTEIN, SERUM 8.3 g/dL (6.0-8.3)
[2019-06-06 00:33] LABS: B-TYPE NATRIURETIC PEPTIDE 312 pg/mL (0-100)
[2019-06-06 00:37] LABS: CREATININE 9.2 mg/dL (0.5-1.5)
[2019-06-06] MEDS ORDERED: INSULIN HUMULIN R 100 UNIT/ML 3ML ONE (01:38)
[2019-06-06] MEDS ORDERED: BENZONATATE 100 MG CAPSULE PO ONE (01:38)
== END 2019-06-06 02:15 | disposition home or self-care (01) ==
LOC: EDH 23:36
DX: J06.9 Acute upper respiratory infection, unspecified (principal); E11.65 Type 2 diabetes mellitus with hyperglycemia; I12.0 Hypertensive chronic kidney disease with stage 5 chronic kidney disease or end stage renal disease; E11.22 Type 2 diabetes mellitus with diabetic chronic kidney disease; N18.6 End stage renal disease; Z99.2 Dependence on renal dialysis; Z90.49 Acquired absence of other specified parts of digestive tract
CPT/HCPCS: 36415; 71045; 80053; 82550; 83880; 84484; 85025; 87804 ×2; 93005; 96374; 99285; J1815

== ENCOUNTER → 2020-04-17 | Outpatient (CLI) | payer MEDICARE ==
[~2020-04-17] MED LIST changes: +AMLO-258 PO; -AMLO10TA7 PO
[2020-04-17 10:40] LABS: HEMATOCRIT 37.1 % (42-54); MEAN CORPUSCULAR HEMOGLOBIN 28.6 pg (27.0-33.0); MEAN CORPUSCULAR HGB CONC 31.8 g/dL (32.0-36.0); RED BLOOD CELL COUNT(AUTO) 4.12 MIL/uL (4.50-6.20); RED CELL DISTRIBUTION WIDTH 15.3 % (11.0-15.5); WHITE BLOOD COUNT (AUTO) 10.1 K/uL (4.8-10.8)
[2020-04-17 11:01] LABS: INR 0.93 (0.85-1.15); PARTIAL THROMBOPLASTIN TIME 25.4 SEC (26.3-35.5); PROTHROMBIN TIME 10.1 SEC (9.6-11.6)
[2020-04-17 11:05] LABS: CREATININE 7.9 mg/dL (0.5-1.5)
== END | disposition home or self-care (01) ==
LOC: LAB 08:54
PROVIDERS: ATTEND Ophthalmology Retina Specialist
DX: H43.13 Vitreous hemorrhage, bilateral (principal)
CPT/HCPCS: 36415; 80048; 85027; 85610; 85730

== ENCOUNTER → 2020-04-22 | Outpatient (CLI) | payer MEDICARE ==
[~2020-04-22] MED LIST changes: +ATOR40TA71 PO
== END | disposition home or self-care (01) ==
LOC: LAB 11:22
PROVIDERS: ATTEND Specialist
DX: I12.0 Hypertensive chronic kidney disease with stage 5 chronic kidney disease or end stage renal disease (principal); E11.22 Type 2 diabetes mellitus with diabetic chronic kidney disease; N18.6 End stage renal disease; I25.10 Atherosclerotic heart disease of native coronary artery without angina pectoris; Z99.2 Dependence on renal dialysis
CPT/HCPCS: 36415; 84132

== ENCOUNTER 2020-06-24 05:18 | Inpatient (IN) | payer MEDICARE ==
[~2020-06-24 05:18] MED LIST changes: -ATOR40TA71 PO
[2020-06-24 06:52] LABS: ABG BASE EXCESS -0.9 mmol/L (-2.0-3.0); ABG HCO3 23.2 mmol/L (21.0-28.0); ABG OXYGEN SATURATION 88.8 % (95.0-99.0); ABG PCO2 37 mmHg (35-48)
[2020-06-24 07:36] LABS: BASOPHILS % (AUTO) 0.8 % (0.0-5.0); EOSINOPHILS % (AUTO) 0.6 % (0.0-8.0); HEMATOCRIT 28.1 % (42-54); LYMPHOCYTES % (AUTO) 13.9 % (21.0-51.0); MEAN CORPUSCULAR HEMOGLOBIN 28.3 pg (27.0-33.0); MEAN CORPUSCULAR HGB CONC 32.4 g/dL (32.0-36.0); MEAN CORPUSCULAR VOLUME 87.5 fL (79-99); MONOCYTES % (AUTO) 7.4 % (3.0-13.0); NEUTROPHILS % (AUTO) 76.8 % (40.0-77.0); PLATELET COUNT (AUTO) 188 K/uL (130-400); RED BLOOD CELL COUNT(AUTO) 3.21 MIL/uL (4.50-6.20); RED CELL DISTRIBUTION WIDTH 15.4 % (11.0-15.5); WHITE BLOOD COUNT (AUTO) 12.7 K/uL (4.8-10.8)
[2020-06-24 07:48] LABS: ALBUMIN 3.5 g/dL (3.5-5.0); BILIRUBIN,TOTAL 0.6 mg/dL (0.2-1.0); INR 1.05 (0.85-1.15); POTASSIUM 5.3 mmol/L (3.5-5.1); PROTHROMBIN TIME 11.4 SEC (9.6-11.6); TOTAL PROTEIN, SERUM 7.7 g/dL (6.0-8.3)
[2020-06-24 08:00] LABS: CREATININE 11.8 mg/dL (0.5-1.5)
[2020-06-24 08:13] LABS: B-TYPE NATRIURETIC PEPTIDE 2250 pg/mL (0-100)
[2020-06-24 08:19] LABS: PARTIAL THROMBOPLASTIN TIME 18.6 SEC (26.3-35.5)
[2020-06-24] MEDS ORDERED: CEFTRIAXONE 1G VIAL ONE ×2 (08:52→20:34)
[2020-06-24] MEDS ORDERED: AZITHROMYCIN 500MG+NS 250ML 250 ML IV ONE (09:57)
[2020-06-24] MEDS ORDERED: GLUCAGON 1MG KIT 1 MG ML IM PRN (10:15)
[2020-06-24] MEDS: DOXYCYCLINE 100MG+NS 250ML 250 ML IV SCH (10:15)
[2020-06-24] MEDS ORDERED: DEXTROSE 50%-WATER 50 ML DISP.SYRIN IV PRN (10:15)
[2020-06-24] MEDS: INSULIN HUMULIN R 100 UNIT/ML 3ML SQ SCH ×3 (11:30→21:00)
[2020-06-24] MEDS ORDERED: DOXYCYCLINE 100MG+NS 250ML 250 ML IV ONE ×2 (14:29→20:34)
[2020-06-24] MEDS ORDERED: INSULIN HUMULIN R 100 UNIT/ML 3ML ONE (20:37)
[2020-06-24] MEDS: CEFTRIAXONE 1G VIAL IVP SCH (21:00)
[2020-06-25] VITALS (7 sets, daily range): BP systolic 91–154; BP diastolic 53–80
[2020-06-25] MEDS ORDERED: ATOR40TA71 PO (04:03)
[2020-06-25] MEDS: DOXYCYCLINE 100MG+NS 250ML 250 ML IV SCH ×2 (04:44→07:59)
[2020-06-25 05:24] LABS: BASOPHILS % (AUTO) 1.3 % (0.0-5.0); EOSINOPHILS % (AUTO) 3.1 % (0.0-8.0); HEMATOCRIT 27.8 % (42-54); LYMPHOCYTES % (AUTO) 20.2 % (21.0-51.0); MEAN CORPUSCULAR HEMOGLOBIN 29.1 pg (27.0-33.0); MEAN CORPUSCULAR HGB CONC 32.7 g/dL (32.0-36.0); MEAN CORPUSCULAR VOLUME 88.8 fL (79-99); MONOCYTES % (AUTO) 8.6 % (3.0-13.0); NEUTROPHILS % (AUTO) 66.4 % (40.0-77.0); PLATELET COUNT (AUTO) 320 K/uL (130-400); RED BLOOD CELL COUNT(AUTO) 3.13 MIL/uL (4.50-6.20); RED CELL DISTRIBUTION WIDTH 15.7 % (11.0-15.5); WHITE BLOOD COUNT (AUTO) 7.7 K/uL (4.8-10.8)
[2020-06-25 05:55] LABS: ALBUMIN 3.1 g/dL (3.5-5.0); BILIRUBIN,TOTAL 0.5 mg/dL (0.2-1.0); POTASSIUM 4.5 mmol/L (3.5-5.1); TOTAL PROTEIN, SERUM 7.3 g/dL (6.0-8.3)
[2020-06-25 06:02] LABS: CREATININE 9.5 mg/dL (0.5-1.5)
[2020-06-25] MEDS: INSULIN HUMULIN R 100 UNIT/ML 3ML SQ SCH ×6 (06:47→21:30)
[2020-06-25] MEDS: CEFTRIAXONE 1G VIAL IVP SCH ×2 (08:32→21:14)
[2020-06-25] MEDS: SEVELAMER HCL 800 MG TABLET PO SCH ×2 (11:53→17:11)
[2020-06-25] MEDS: GUAIFENESIN-DM 200/20 MG 10 ML PO PRN (17:44)
[2020-06-25] MEDS ORDERED: ATORVASTATIN 40 MG TABLET PO SCH (21:00)
[2020-06-25] MEDS: METOPROLOL TARTRATE 50 MG TAB PO SCH (21:15)
[2020-06-26] MEDS: GUAIFENESIN-DM 200/20 MG 10 ML PO PRN (00:06)
[2020-06-26 03:00] VITALS: BP 133/72
[2020-06-26] MEDS ORDERED: DOXYCYCLINE 100MG+NS 250ML 250 ML IV ONE (04:41)
[2020-06-26] MEDS ORDERED: DOXYCYCLINE 100MG+NS 250ML 250 ML IV SCH (05:00)
[2020-06-26 05:13] LABS: BASOPHILS % (AUTO) 1.3 % (0.0-5.0); EOSINOPHILS % (AUTO) 3.8 % (0.0-8.0); HEMATOCRIT 29.8 % (42-54); LYMPHOCYTES % (AUTO) 23.5 % (21.0-51.0); MEAN CORPUSCULAR HEMOGLOBIN 28.5 pg (27.0-33.0); MEAN CORPUSCULAR HGB CONC 31.9 g/dL (32.0-36.0); MEAN CORPUSCULAR VOLUME 89.5 fL (79-99); MONOCYTES % (AUTO) 10.1 % (3.0-13.0); NEUTROPHILS % (AUTO) 61.2 % (40.0-77.0); PLATELET COUNT (AUTO) 346 K/uL (130-400); RED BLOOD CELL COUNT(AUTO) 3.33 MIL/uL (4.50-6.20); RED CELL DISTRIBUTION WIDTH 15.6 % (11.0-15.5); WHITE BLOOD COUNT (AUTO) 7.7 K/uL (4.8-10.8)
[2020-06-26] MEDS: INSULIN HUMULIN R 100 UNIT/ML 3ML SQ SCH ×2 (05:26→05:58)
[2020-06-26 05:36] LABS: ALBUMIN 3.2 g/dL (3.5-5.0); BILIRUBIN,TOTAL 0.4 mg/dL (0.2-1.0); POTASSIUM 4.1 mmol/L (3.5-5.1); TOTAL PROTEIN, SERUM 7.6 g/dL (6.0-8.3)
[2020-06-26 05:43] LABS: CREATININE 8.5 mg/dL (0.5-1.5)
[2020-06-26 08:00] VITALS: BP 148/80
[2020-06-26] MEDS: SEVELAMER HCL 800 MG TABLET PO SCH (08:51)
[2020-06-26] MEDS: METOPROLOL TARTRATE 50 MG TAB PO SCH (08:51)
[2020-06-26] MEDS: CEFTRIAXONE 1G VIAL IVP SCH (08:52)
[2020-06-26] MEDS ORDERED: CLOPIDOGREL 75MG TAB PO SCH (09:00)
[2020-06-26] MEDS ORDERED: AMLODIPINE 5 MG TAB PO SCH (09:00)
[2020-06-26] MEDS ORDERED: Vitamin B Complex/Vit C/Folic Acid PO SCH (09:00)
[2020-06-26] MEDS ORDERED: LOSARTAN 50 MG TABLET PO SCH (09:00)
== END 2020-06-26 10:52 | disposition home or self-care (01) | DRG 189 ==
LOC: EDH 05:18 → EDHIP 10:06 → 2DH 06-25 01:21
PROVIDERS: ADMIT Hospitalist; ATTEND Hospitalist
PROC: 5A1D70Z Performance of Urinary Filtration, Intermittent, Less than 6 Hours Per Day (ICD-10-PCS; principal; 2020-06-22)
PROC: 5A1D70Z Performance of Urinary Filtration, Intermittent, Less than 6 Hours Per Day (ICD-10-PCS; 2020-06-25)
DX: J96.01 Acute respiratory failure with hypoxia (principal); N18.6 End stage renal disease; I12.0 Hypertensive chronic kidney disease with stage 5 chronic kidney disease or end stage renal disease; N17.9 Acute kidney failure, unspecified; E87.1 Hypo-osmolality and hyponatremia; E11.22 Type 2 diabetes mellitus with diabetic chronic kidney disease; E87.5 Hyperkalemia; I25.10 Atherosclerotic heart disease of native coronary artery without angina pectoris; I44.0 Atrioventricular block, first degree; Z20.822 Contact with and (suspected) exposure to COVID-19; Z99.2 Dependence on renal dialysis; Z91.15 Patient's noncompliance with renal dialysis; Z89.429 Acquired absence of other toe(s), unspecified side; Z90.49 Acquired absence of other specified parts of digestive tract; Z82.0 Family history of epilepsy and other diseases of the nervous system; Z82.3 Family history of stroke; Z83.3 Family history of diabetes mellitus; Z82.49 Family history of ischemic heart disease and other diseases of the circulatory system
CPT/HCPCS: 36415; 36600; 71045; 71250; 80053; 82803; 82948; 83605; 83880; 84145; 84484; 85025; 85378; 85610; 85730; 87040; 87426; 87804; 90935; 93005; G0378; J0456; J0696; J1815; J3490; U0003

== ENCOUNTER 2020-12-28 22:28 | Inpatient (IN) | payer MEDICARE ==
[~2020-12-28] VITALS: Ht 165.1 cm; Wt 95.9 kg
[~2020-12-28 22:28] MED LIST changes: +ATOR40TA71 PO
[2020-12-28 22:55] VITALS: BP 143/64
[2020-12-29] VITALS (16 sets, daily range): BP systolic 117–168; BP diastolic 36–102
[2020-12-29] MEDS ORDERED: ZOSYN 3.375GM +NS 50ML IV ONE
[2020-12-29 00:07] LABS: INR 1.02 (0.85-1.15); PROTHROMBIN TIME 11.1 SEC (9.6-11.6)
[2020-12-29 00:08] LABS: PARTIAL THROMBOPLASTIN TIME 29.6 SEC (26.3-35.5)
[2020-12-29 00:15] LABS: BASOPHILS % (AUTO) 0.7 % (0.0-5.0); EOSINOPHILS % (AUTO) 1.5 % (0.0-8.0); HEMATOCRIT 32.3 % (42-54); LYMPHOCYTES % (AUTO) 11.1 % (21.0-51.0); MEAN CORPUSCULAR HEMOGLOBIN 28.5 pg (27.0-33.0); MEAN CORPUSCULAR HGB CONC 33.1 g/dL (32.0-36.0); MEAN CORPUSCULAR VOLUME 86.1 fL (79-99); MONOCYTES % (AUTO) 6.5 % (3.0-13.0); NEUTROPHILS % (AUTO) 79.7 % (40.0-77.0); PLATELET COUNT (AUTO) 523 K/uL (130-400); RED BLOOD CELL COUNT(AUTO) 3.75 MIL/uL (4.50-6.20); RED CELL DISTRIBUTION WIDTH 15.6 % (11.0-15.5); WHITE BLOOD COUNT (AUTO) 21.1 K/uL (4.8-10.8)
[2020-12-29 00:27] LABS: B-TYPE NATRIURETIC PEPTIDE 773 pg/mL (0-100)
[2020-12-29 00:32] LABS: ALBUMIN 3.4 g/dL (3.5-5.0); BILIRUBIN,TOTAL 0.3 mg/dL (0.2-1.0)
[2020-12-29 00:40] LABS: CREATININE 10.5 mg/dL (0.5-1.5); POTASSIUM 6.6 mmol/L (3.5-5.1)
[2020-12-29] MEDS ORDERED: 0.9%NACL 50ML 50 ML IV ONE (00:47)
[2020-12-29] MEDS ORDERED: INSULIN HUMULIN R 100 UNIT/ML 3ML SQ STA (01:03)
[2020-12-29] MEDS ORDERED: ACETAMINOPHEN 325 MG TAB PO PRN ×2 (01:30)
[2020-12-29] MEDS ORDERED: ACETAMINOPHEN WITH CODEINE 1 TAB TAB PO PRN (01:30)
[2020-12-29] MEDS ORDERED: KAYEXALATE 15GM/60ML PO ONE ×2 (01:30→02:00)
[2020-12-29] MEDS ORDERED: NITROGLYCERIN 0.4 MG SL TAB SL PRN (01:30)
[2020-12-29] MEDS ORDERED: RENAL DOSE IV SCH (01:30)
[2020-12-29] MEDS ORDERED: GLUCAGON 1MG KIT 1 MG ML IM PRN (01:30)
[2020-12-29] MEDS ORDERED: DEXTROSE 50%-WATER 50 ML DISP.SYRIN IV PRN (01:30)
[2020-12-29 01:33] LABS: MAGNESIUM 2.4 mg/dL (1.80-2.40); PHOSPHORUS 4.6 mg/dL (2.5-4.9)
[2020-12-29 01:54] LABS: HEMOGLOBIN A1C 12.6 % (4.0-6.0)
[2020-12-29] MEDS ORDERED: HEPARIN 5,000 UNIT VIAL SQ SCH (02:30)
[2020-12-29] MEDS ORDERED: INSULIN HUMULIN R 100 UNIT/ML 3ML ONE (04:07)
[2020-12-29] MEDS ORDERED: INSULIN HUMULIN R 100 UNIT/ML 3ML SQ ONE (04:30)
[2020-12-29] MEDS ORDERED: GLIP10TA9 PO (05:34)
[2020-12-29] MEDS ORDERED: AEC81 PO (05:34)
[2020-12-29] MEDS ORDERED: SEVE800T7 PO (05:34)
[2020-12-29] MEDS ORDERED: FOLI1TAB85 PO (05:34)
[2020-12-29] MEDS ORDERED: PANT40TA54 PO (05:34)
[2020-12-29] MEDS ORDERED: GABA-529 PO (05:34)
[2020-12-29] MEDS ORDERED: ATOR40TA69 PO (05:35)
[2020-12-29] MEDS ORDERED: METO50TA18 PO (05:35)
[2020-12-29] MEDS ORDERED: LINE600T14 PO (05:35)
[2020-12-29] MEDS ORDERED: CLOP75TA32 PO (05:35)
[2020-12-29] MEDS ORDERED: FURO40TA5 PO (05:35)
[2020-12-29] MEDS ORDERED: LOSA50TA64 PO (05:35)
[2020-12-29 07:25] LABS: HEMATOCRIT 31.4 % (42-54); MEAN CORPUSCULAR HEMOGLOBIN 27.8 pg (27.0-33.0); MEAN CORPUSCULAR HGB CONC 32.2 g/dL (32.0-36.0); MEAN CORPUSCULAR VOLUME 86.5 fL (79-99); PLATELET COUNT (AUTO) 508 K/uL (130-400); RED BLOOD CELL COUNT(AUTO) 3.63 MIL/uL (4.50-6.20); RED CELL DISTRIBUTION WIDTH 15.6 % (11.0-15.5); WHITE BLOOD COUNT (AUTO) 17.4 K/uL (4.8-10.8)
[2020-12-29 07:44] LABS: BILIRUBIN,TOTAL 0.3 mg/dL (0.2-1.0); MAGNESIUM 2.5 mg/dL (1.80-2.40); PHOSPHORUS 5.3 mg/dL (2.5-4.9); TOTAL PROTEIN, SERUM 8.1 g/dL (6.0-8.3)
[2020-12-29 07:48] LABS: CREATININE 11.3 mg/dL (0.5-1.5)
[2020-12-29 08:02] LABS: EOSINOPHILS % (MANUAL) 3 % (1-6); LYMPHOCYTES % (MANUAL) 21 % (22-44); MAN.DIFF COMMENT-IMPRESSION MANUAL DIFFERENTIAL; MONOCYTES % (MANUAL) 1 % (2-9); SEGMENTED NEUTROPHILS % 75 % (40-70)
[2020-12-29 08:03] LABS: PLATELET MORPHOLOGY COMMENT MARKED INCREASE
[2020-12-29] MEDS: INSULIN HUMULIN R 100 UNIT/ML 3ML SQ SCH ×3 (09:00→16:30)
[2020-12-29] MEDS ORDERED: VANCOMYCIN PROTOCOL PER PHARMACY IV SCH (09:30)
[2020-12-29] MEDS: FAMOTIDINE 20MG TAB PO SCH (09:42)
[2020-12-29] MEDS: HEPARIN 25,000 UNITS/250ML D5W 250 ML IV SCH (09:58)
[2020-12-29] MEDS ORDERED: COMPOUND IV REFRIGERATED 1 EACH IVSOLN MISC PRN (10:00)
[2020-12-29] MEDS: VANCOMYCIN 1.5GM/NS 250ML IV SCH ×2 (10:58)
[2020-12-29 15:43] LABS: INR 1.06 (0.85-1.15); PROTHROMBIN TIME 11.5 SEC (9.6-11.6)
[2020-12-29 22:26] LABS: INR 1.01 (0.85-1.15)
[2020-12-30] VITALS (9 sets, daily range): BP systolic 116–161; BP diastolic 47–86
[2020-12-30] MEDS: METOPROLOL TARTRATE 50 MG TAB PO SCH ×3 (00:30→20:24)
[2020-12-30] MEDS: INSULIN HUMULIN R 100 UNIT/ML 3ML SQ SCH ×5 (00:30→20:35)
[2020-12-30] MEDS: ZOSYN 3.375GM +NS 50ML IV SCH ×3 (00:30→20:24)
[2020-12-30 01:45] LABS: INR 1.03 (0.85-1.15); PROTHROMBIN TIME 11.2 SEC (9.6-11.6)
[2020-12-30 01:46] LABS: PARTIAL THROMBOPLASTIN TIME 69.8 SEC (26.3-35.5)
[2020-12-30] MEDS: HEPARIN 25,000 UNITS/250ML D5W 250 ML IV SCH ×2 (04:51→20:38)
[2020-12-30] MEDS: FAMOTIDINE 20MG TAB PO SCH (08:20)
[2020-12-30] MEDS ORDERED: LOSARTAN 50 MG TABLET PO SCH (09:00)
[2020-12-30] MEDS ORDERED: ATORVASTATIN 40 MG TABLET PO SCH (09:00)
[2020-12-30 12:02] LABS: INR 1.09 (0.85-1.15); PROTHROMBIN TIME 11.8 SEC (9.6-11.6)
[2020-12-30 12:03] LABS: PARTIAL THROMBOPLASTIN TIME 56.7 SEC (26.3-35.5)
[2020-12-30] MEDS ORDERED: IOHEXOL-350 50ML VIAL IV ONE (13:25)
[2020-12-30] MEDS ORDERED: IOHEXOL 350 MG/ML 100ML INFUS..BTL IV ONE (13:25)
[2020-12-31] VITALS (20 sets, daily range): BP systolic 106–163; BP diastolic 62–97
[2020-12-31 05:15] LABS: INR 1.1 (0.85-1.15); PROTHROMBIN TIME 11.9 SEC (9.6-11.6)
[2020-12-31 05:16] LABS: PARTIAL THROMBOPLASTIN TIME 76.8 SEC (26.3-35.5)
[2020-12-31] MEDS: INSULIN HUMULIN R 100 UNIT/ML 3ML SQ SCH ×4 (06:46→21:13)
[2020-12-31 07:31] LABS: BASOPHILS % (AUTO) 0.9 % (0.0-5.0); EOSINOPHILS % (AUTO) 3.3 % (0.0-8.0); HEMATOCRIT 29.3 % (42-54); LYMPHOCYTES % (AUTO) 15.4 % (21.0-51.0); MEAN CORPUSCULAR HEMOGLOBIN 27.8 pg (27.0-33.0); MEAN CORPUSCULAR HGB CONC 31.7 g/dL (32.0-36.0); MEAN CORPUSCULAR VOLUME 87.5 fL (79-99); MONOCYTES % (AUTO) 8.3 % (3.0-13.0); NEUTROPHILS % (AUTO) 71.3 % (40.0-77.0); NUCLEATED RED BLOOD CELLS 0.2 % (0.0-0.19); PLATELET COUNT (AUTO) 533 K/uL (130-400); RED BLOOD CELL COUNT(AUTO) 3.35 MIL/uL (4.50-6.20); RED CELL DISTRIBUTION WIDTH 15.9 % (11.0-15.5); WHITE BLOOD COUNT (AUTO) 13.2 K/uL (4.8-10.8)
[2020-12-31 07:50] LABS: POTASSIUM 4.7 mmol/L (3.5-5.1)
[2020-12-31 08:15] LABS: CREATININE 9.9 mg/dL (0.5-1.5)
[2020-12-31] MEDS: ZOSYN 3.375GM +NS 50ML IV SCH ×2 (08:44→21:14)
[2020-12-31] MEDS: METOPROLOL TARTRATE 50 MG TAB PO SCH ×2 (08:46→21:12)
[2020-12-31] MEDS: PANTOPRAZOLE 40 MG TAB DR PO SCH (08:46)
[2020-12-31] MEDS: ASPIRIN 81 MG EC TAB PO SCH (08:46)
[2020-12-31] MEDS: CLOPIDOGREL 75MG TAB PO SCH (08:46)
[2020-12-31] MEDS: LOSARTAN 50 MG TABLET PO SCH (08:47)
[2020-12-31] MEDS: FAMOTIDINE 20MG TAB PO SCH (08:47)
[2020-12-31] MEDS: ONDANSETRON 4MG INJ IV PRN (10:35)
[2020-12-31 15:12] LABS: HEPATITIS Bs ANTIGEN SCREEN P Negative (Negative)
[2020-12-31] MEDS: HEPARIN 25,000 UNITS/250ML D5W 250 ML IV SCH (15:16)
[2020-12-31 16:05] LABS: INR 1.07 (0.85-1.15); PROTHROMBIN TIME 11.6 SEC (9.6-11.6)
[2020-12-31] MEDS ORDERED: HEPARIN 1,000 UNIT VIAL IVP SCH (19:00)
[2020-12-31] MEDS ORDERED: HEPARIN 5,000 UNIT VIAL ONE (19:08)
[2020-12-31] MEDS: ATORVASTATIN 40 MG TABLET PO SCH (21:12)
[2020-12-31 22:12] LABS: INR 1.11 (0.85-1.15)
[2021-01-01] VITALS (7 sets, daily range): BP systolic 74–172; BP diastolic 71–91
[2021-01-01 06:16] LABS: BASOPHILS % (AUTO) 0.8 % (0.0-5.0); EOSINOPHILS % (AUTO) 1.5 % (0.0-8.0); HEMATOCRIT 31.2 % (42-54); LYMPHOCYTES % (AUTO) 12.7 % (21.0-51.0); MEAN CORPUSCULAR HEMOGLOBIN 27.5 pg (27.0-33.0); MEAN CORPUSCULAR HGB CONC 31.4 g/dL (32.0-36.0); MEAN CORPUSCULAR VOLUME 87.6 fL (79-99); MONOCYTES % (AUTO) 10.1 % (3.0-13.0); NEUTROPHILS % (AUTO) 74.2 % (40.0-77.0); NUCLEATED RED BLOOD CELLS 0.1 % (0.0-0.19); PLATELET COUNT (AUTO) 569 K/uL (130-400); RED BLOOD CELL COUNT(AUTO) 3.56 MIL/uL (4.50-6.20); RED CELL DISTRIBUTION WIDTH 15.8 % (11.0-15.5)
[2021-01-01 06:29] LABS: CREATININE 7.5 mg/dL (0.5-1.5); POTASSIUM 4.6 mmol/L (3.5-5.1)
[2021-01-01] MEDS: INSULIN HUMULIN R 100 UNIT/ML 3ML SQ SCH ×4 (07:30→21:00)
[2021-01-01] MEDS: LOSARTAN 50 MG TABLET PO SCH (11:17)
[2021-01-01] MEDS: ZOSYN 3.375GM +NS 50ML IV SCH ×2 (11:17→21:51)
[2021-01-01] MEDS: PANTOPRAZOLE 40 MG TAB DR PO SCH (11:17)
[2021-01-01] MEDS: CLOPIDOGREL 75MG TAB PO SCH (11:17)
[2021-01-01] MEDS: METOPROLOL TARTRATE 50 MG TAB PO SCH ×2 (11:17→21:51)
[2021-01-01] MEDS: ASPIRIN 81 MG EC TAB PO SCH (11:19)
[2021-01-01] MEDS: HEPARIN 25,000 UNITS/250ML D5W 250 ML IV SCH (11:26)
[2021-01-01] MEDS: ATORVASTATIN 40 MG TABLET PO SCH (21:51)
[2021-01-02] VITALS (19 sets, daily range): BP systolic 115–168; BP diastolic 53–84
[2021-01-02] MEDS: HEPARIN 25,000 UNITS/250ML D5W 250 ML IV SCH (01:12)
[2021-01-02] MEDS: INSULIN HUMULIN R 100 UNIT/ML 3ML SQ SCH ×5 (06:10→21:00)
[2021-01-02] MEDS: METOPROLOL TARTRATE 50 MG TAB PO SCH ×2 (09:00→20:33)
[2021-01-02] MEDS: LOSARTAN 50 MG TABLET PO SCH (09:00)
[2021-01-02] MEDS: FUROSEMIDE 40 MG TABLET PO SCH (09:00)
[2021-01-02] MEDS: ZOSYN 3.375GM +NS 50ML IV SCH ×2 (09:00→20:33)
[2021-01-02] MEDS: 0.9%NACL 1000ML 1,000 ML IV PRN (12:39)
[2021-01-02] MEDS: CLOPIDOGREL 75MG TAB PO SCH (13:27)
[2021-01-02] MEDS: ASPIRIN 81 MG EC TAB PO SCH (13:27)
[2021-01-02] MEDS: PANTOPRAZOLE 40 MG TAB DR PO SCH (13:27)
[2021-01-02] MEDS ORDERED: LACTULOSE 20 GM/30 ML UDCUP ONE (17:23)
[2021-01-02] MEDS ORDERED: LACTULOSE 20 GM/30 ML UDCUP PO PRN (17:30)
[2021-01-02] MEDS: ATORVASTATIN 40 MG TABLET PO SCH (20:33)
[2021-01-03] VITALS (18 sets, daily range): BP systolic 115–167; BP diastolic 52–88
[2021-01-03] MEDS: INSULIN HUMULIN R 100 UNIT/ML 3ML SQ SCH ×4 (06:09→20:33)
[2021-01-03 06:12] LABS: BASOPHILS % (AUTO) 0.5 % (0.0-5.0); EOSINOPHILS % (AUTO) 0.2 % (0.0-8.0); HEMATOCRIT 31.1 % (42-54); LYMPHOCYTES % (AUTO) 11.1 % (21.0-51.0); MEAN CORPUSCULAR HEMOGLOBIN 27.7 pg (27.0-33.0); MEAN CORPUSCULAR HGB CONC 31.5 g/dL (32.0-36.0); MEAN CORPUSCULAR VOLUME 87.9 fL (79-99); MONOCYTES % (AUTO) 10.9 % (3.0-13.0); NEUTROPHILS % (AUTO) 76.9 % (40.0-77.0); PLATELET COUNT (AUTO) 531 K/uL (130-400); RED BLOOD CELL COUNT(AUTO) 3.54 MIL/uL (4.50-6.20); WHITE BLOOD COUNT (AUTO) 16.7 K/uL (4.8-10.8)
[2021-01-03 06:30] LABS: POTASSIUM 4.4 mmol/L (3.5-5.1)
[2021-01-03 06:34] LABS: CREATININE 8.1 mg/dL (0.5-1.5)
[2021-01-03] MEDS: ASPIRIN 81 MG EC TAB PO SCH (08:37)
[2021-01-03] MEDS: CLOPIDOGREL 75MG TAB PO SCH (08:37)
[2021-01-03] MEDS: METOPROLOL TARTRATE 50 MG TAB PO SCH ×2 (09:00→20:13)
[2021-01-03] MEDS: LOSARTAN 50 MG TABLET PO SCH (09:00)
[2021-01-03] MEDS: FUROSEMIDE 40 MG TABLET PO SCH (09:00)
[2021-01-03] MEDS: ZOSYN 3.375GM +NS 50ML IV SCH ×2 (09:00→20:12)
[2021-01-03] MEDS: PANTOPRAZOLE 40 MG TAB DR PO SCH (09:00)
[2021-01-03] MEDS ORDERED: PROPOFOL 10 MG/ML 20ML VIAL IV ONE (16:06)
[2021-01-03] MEDS ORDERED: NEOSTIGMINE 5MG/5ML SYR IV ONE (16:06)
[2021-01-03] MEDS ORDERED: LIDOCAINE PF 100MG/5ML (2%) SYRINGE 5ML ONE (16:06)
[2021-01-03] MEDS ORDERED: SUCCINYLCHOLINE 200MG/10ML SYR ONE (16:06)
[2021-01-03] MEDS ORDERED: GLYCOPYRROLATE 1 MG/5 ML SYRINGE ONE (16:06)
[2021-01-03] MEDS ORDERED: DEXAMETHASONE SOD PHOSPHATE 10MG/ML 1ML VIAL ONE (16:06)
[2021-01-03] MEDS ORDERED: ONDANSETRON 4MG INJ ONE (16:06)
[2021-01-03] MEDS ORDERED: MIDAZOLAM HCL 1 MG/ML 2ML VIAL ONE (16:06)
[2021-01-03] MEDS ORDERED: FENTANYL CITRATE PF 50 MCG/1 ML 2ML VIAL ONE ×2 (16:07→16:51)
[2021-01-03] MEDS ORDERED: ROCURONIUM 10MG/1ML SYR 10 MG/ML ML ONE (16:07)
[2021-01-03] MEDS ORDERED: DIPHENHYDRAMINE HCL 25 MG CAPSULE PO PRN (17:30)
[2021-01-03] MEDS: 0.9%NACL 1000ML 1,000 ML IV SCH (17:30)
[2021-01-03] MEDS ORDERED: DiphenhydrAMINE HCL 50 MG/ML VIAL IVP PRN (17:30)
[2021-01-03] MEDS ORDERED: TRAMADOL HCL 50 MG TABLET PO PRN (17:30)
[2021-01-03] MEDS ORDERED: POTASSIUM CHLORIDE 10% ELIXIR 20 MEQ/15 ML UDCUP PO PRN (17:30)
[2021-01-03] MEDS ORDERED: HYDROCODONE/ACETAMINOPHEN 5/325 MG TAB PO PRN (17:30)
[2021-01-03] MEDS ORDERED: KCL 20 MEQ ERTAB PO PRN (17:30)
[2021-01-03] MEDS ORDERED: FERROUS FUMARATE 324 MG TABLET PO PRN (17:30)
[2021-01-03] MEDS ORDERED: CALCIUM CARB 500MG PO PRN (17:30)
[2021-01-03] MEDS ORDERED: POTASSIUM CHLORIDE 20MEQ/100ML 100 ML IV PRN (17:30)
[2021-01-03] MEDS: 0.9%NACL 1000ML 1,000 ML IV PRN (17:37)
[2021-01-03] MEDS ORDERED: MEPERIDINE-PF 25 MG/ML SYG ONE ×3 (17:49→18:12)
[2021-01-03] MEDS: ATORVASTATIN 40 MG TABLET PO SCH (20:13)
[2021-01-03] MEDS: ACETAMINOPHEN WITH CODEINE 1 TAB TAB PO PRN (23:24)
[2021-01-03] MEDS: CEFAZOLIN 3GM /D5W 100ML 100 ML IV SCH (23:24)
[2021-01-04] VITALS: BP 154/74
[2021-01-04] MEDS: ACETAMINOPHEN 500 MG TABLET PO SCH ×3 (01:30→17:07)
[2021-01-04] MEDS: 0.9%NACL 1000ML 1,000 ML IV SCH ×2 (03:30→13:30)
[2021-01-04 04:00] VITALS: BP 141/62
[2021-01-04 05:04] LABS: HEMATOCRIT 29.2 % (42-54); MEAN CORPUSCULAR HEMOGLOBIN 27.5 pg (27.0-33.0); MEAN CORPUSCULAR HGB CONC 31.5 g/dL (32.0-36.0); MEAN CORPUSCULAR VOLUME 87.2 fL (79-99); PLATELET COUNT (AUTO) 552 K/uL (130-400); RED BLOOD CELL COUNT(AUTO) 3.35 MIL/uL (4.50-6.20); WHITE BLOOD COUNT (AUTO) 21.9 K/uL (4.8-10.8)
[2021-01-04 05:25] LABS: POTASSIUM 5.8 mmol/L (3.5-5.1)
[2021-01-04 05:29] LABS: CREATININE 9.9 mg/dL (0.5-1.5)
[2021-01-04] MEDS: CEFAZOLIN 3GM /D5W 100ML 100 ML IV SCH (06:07)
[2021-01-04] MEDS: INSULIN HUMULIN R 100 UNIT/ML 3ML SQ SCH ×4 (06:08→20:19)
[2021-01-04] MEDS: ACETAMINOPHEN WITH CODEINE 1 TAB TAB PO PRN ×3 (06:09→21:37)
[2021-01-04 06:15] LABS: BAND NEUTROPHILS % (MANUAL) 3 % (0-2); LYMPHOCYTES % (MANUAL) 11 % (22-44); MAN.DIFF COMMENT-IMPRESSION MANUAL DIFFERENTIAL; MONOCYTES % (MANUAL) 7 % (2-9); SEGMENTED NEUTROPHILS % 79 % (40-70)
[2021-01-04 06:16] LABS: PLATELET MORPHOLOGY COMMENT SLIGHT INCREASED
[2021-01-04 08:00] VITALS: BP 138/80
[2021-01-04] MEDS: ZOSYN 3.375GM +NS 50ML IV SCH ×2 (09:16→21:28)
[2021-01-04] MEDS: ASPIRIN 81 MG EC TAB PO SCH (09:17)
[2021-01-04] MEDS: LOSARTAN 50 MG TABLET PO SCH (09:19)
[2021-01-04] MEDS: FUROSEMIDE 40 MG TABLET PO SCH (09:22)
[2021-01-04] MEDS: PANTOPRAZOLE 40 MG TAB DR PO SCH (09:23)
[2021-01-04] MEDS: POLYETHYLENE GLYCOL 3350 17 GM POWD.PACK PO SCH (09:23)
[2021-01-04] MEDS: CLOPIDOGREL 75MG TAB PO SCH (09:23)
[2021-01-04] MEDS: METOPROLOL TARTRATE 50 MG TAB PO SCH ×2 (09:23→21:28)
[2021-01-04 12:00] VITALS: BP 151/82
[2021-01-04] MEDS: PSYLLIUM SEED 1 EACH PACKET PO SCH (12:00)
[2021-01-04] MEDS ORDERED: NA ZIRCON CYCLOSIL(LOKELMA 10GM) PO ONE (14:30)
[2021-01-04] MEDS ORDERED: NA ZIRCON CYCLOSIL(LOKELMA 10GM) PO SCH (15:30)
[2021-01-04 16:00] VITALS: BP 150/81
[2021-01-04 20:00] VITALS: BP 139/66
[2021-01-04] MEDS: ATORVASTATIN 40 MG TABLET PO SCH (21:28)
[2021-01-05] VITALS (22 sets, daily range): BP systolic 87–138; BP diastolic 58–103
[2021-01-05] MEDS: ACETAMINOPHEN 500 MG TABLET PO SCH ×3 (01:38→18:45)
[2021-01-05] MEDS: INSULIN HUMULIN R 100 UNIT/ML 3ML SQ SCH ×4 (06:36→21:00)
[2021-01-05 07:39] LABS: BASOPHILS % (AUTO) 0.6 % (0.0-5.0); EOSINOPHILS % (AUTO) 1.7 % (0.0-8.0); HEMATOCRIT 29.7 % (42-54); LYMPHOCYTES % (AUTO) 17.8 % (21.0-51.0); MEAN CORPUSCULAR HEMOGLOBIN 27.4 pg (27.0-33.0); MEAN CORPUSCULAR HGB CONC 30.6 g/dL (32.0-36.0); MEAN CORPUSCULAR VOLUME 89.5 fL (79-99); MONOCYTES % (AUTO) 11.7 % (3.0-13.0); NEUTROPHILS % (AUTO) 67.6 % (40.0-77.0); PLATELET COUNT (AUTO) 534 K/uL (130-400); RED BLOOD CELL COUNT(AUTO) 3.32 MIL/uL (4.50-6.20); RED CELL DISTRIBUTION WIDTH 15.1 % (11.0-15.5); WHITE BLOOD COUNT (AUTO) 16.7 K/uL (4.8-10.8)
[2021-01-05 08:18] LABS: PHOSPHORUS 12.2 mg/dL (2.5-4.9); POTASSIUM 5.1 mmol/L (3.5-5.1)
[2021-01-05 08:21] LABS: CREATININE 12.3 mg/dL (0.5-1.5)
[2021-01-05] MEDS: VANCOMYCIN 1.5GM/NS 250ML IV SCH ×2 (09:00)
[2021-01-05] MEDS: CLOPIDOGREL 75MG TAB PO SCH (10:02)
[2021-01-05] MEDS: ASPIRIN 81 MG EC TAB PO SCH (10:02)
[2021-01-05] MEDS: FUROSEMIDE 40 MG TABLET PO SCH (10:02)
[2021-01-05] MEDS: LOSARTAN 50 MG TABLET PO SCH (10:02)
[2021-01-05] MEDS: POLYETHYLENE GLYCOL 3350 17 GM POWD.PACK PO SCH (10:02)
[2021-01-05] MEDS: PANTOPRAZOLE 40 MG TAB DR PO SCH (10:02)
[2021-01-05] MEDS: ZOSYN 3.375GM +NS 50ML IV SCH (10:03)
[2021-01-05] MEDS: ONDANSETRON 4MG INJ IV PRN ×2 (10:08→17:54)
[2021-01-05] MEDS: METOPROLOL TARTRATE 50 MG TAB PO SCH ×2 (10:24→21:02)
[2021-01-05] MEDS ORDERED: VANCOMYCIN 1.5GM/NS 250ML IV SCH ×2 (11:06)
[2021-01-05] MEDS: PSYLLIUM SEED 1 EACH PACKET PO SCH (11:40)
[2021-01-05] MEDS ORDERED: 0.9%NACL 1000ML 1,000 ML IV PRN (15:30)
[2021-01-05] MEDS ORDERED: BISACODYL 5 MG TABLET.DR PO PRN (17:30)
[2021-01-05] MEDS: ATORVASTATIN 40 MG TABLET PO SCH (21:02)
[2021-01-06 00:02] VITALS: BP 120/60
[2021-01-06] MEDS: ACETAMINOPHEN 500 MG TABLET PO SCH ×3 (01:54→16:54)
[2021-01-06 04:14] VITALS: BP 125/65
[2021-01-06] MEDS: INSULIN HUMULIN R 100 UNIT/ML 3ML SQ SCH ×4 (05:53→21:00)
[2021-01-06 06:39] LABS: BASOPHILS % (AUTO) 0.5 % (0.0-5.0); EOSINOPHILS % (AUTO) 0.5 % (0.0-8.0); HEMATOCRIT 26.9 % (42-54); LYMPHOCYTES % (AUTO) 7.2 % (21.0-51.0); MEAN CORPUSCULAR HGB CONC 31.2 g/dL (32.0-36.0); MEAN CORPUSCULAR VOLUME 89.7 fL (79-99); MONOCYTES % (AUTO) 10.1 % (3.0-13.0); PLATELET COUNT (AUTO) 571 K/uL (130-400); RED CELL DISTRIBUTION WIDTH 15.2 % (11.0-15.5); WHITE BLOOD COUNT (AUTO) 16.3 K/uL (4.8-10.8)
[2021-01-06 06:53] LABS: POTASSIUM 4.4 mmol/L (3.5-5.1)
[2021-01-06 06:58] LABS: CREATININE 8.9 mg/dL (0.5-1.5)
[2021-01-06 08:00] VITALS: BP 131/60
[2021-01-06] MEDS: POLYETHYLENE GLYCOL 3350 17 GM POWD.PACK PO SCH (09:00)
[2021-01-06] MEDS: ASPIRIN 81 MG EC TAB PO SCH (10:03)
[2021-01-06] MEDS: FUROSEMIDE 40 MG TABLET PO SCH (10:04)
[2021-01-06] MEDS: METOPROLOL TARTRATE 50 MG TAB PO SCH ×2 (10:04→21:01)
[2021-01-06] MEDS: LOSARTAN 50 MG TABLET PO SCH (10:04)
[2021-01-06] MEDS: PANTOPRAZOLE 40 MG TAB DR PO SCH (10:04)
[2021-01-06] MEDS: CLOPIDOGREL 75MG TAB PO SCH (10:04)
[2021-01-06] MEDS: ONDANSETRON 4MG INJ IV PRN (10:05)
[2021-01-06] MEDS ORDERED: ONDANSETRON 4MG TABLET PO PRN (11:00)
[2021-01-06] MEDS: PSYLLIUM SEED 1 EACH PACKET PO SCH (12:00)
[2021-01-06 12:02] VITALS: BP 136/68
[2021-01-06 16:00] VITALS: BP 133/67
[2021-01-06] MEDS ORDERED: BISACODYL 10 MG SUPP.RECT RC PRN (17:30)
[2021-01-06 19:00] VITALS: BP 130/65
[2021-01-06] MEDS: ATORVASTATIN 40 MG TABLET PO SCH (21:01)
== END 2021-01-07 00:01 | DRG 853 ==
LOC: EDH 22:28 → EDHIP 12-29 01:05 → 4CH 12-30 02:09
PROVIDERS: ADMIT Internal Medicine; ATTEND Internal Medicine
PROC: 5A1D70Z Performance of Urinary Filtration, Intermittent, Less than 6 Hours Per Day (ICD-10-PCS; 2020-12-29)
PROC: 5A1D70Z Performance of Urinary Filtration, Intermittent, Less than 6 Hours Per Day (ICD-10-PCS; 2020-12-31)
PROC: 5A1D70Z Performance of Urinary Filtration, Intermittent, Less than 6 Hours Per Day (ICD-10-PCS; 2021-01-02)
PROC: 0Y6J0Z1 Detachment at Left Lower Leg, High, Open Approach (ICD-10-PCS; principal; 2021-01-03 16:00)
PROC: 5A1D70Z Performance of Urinary Filtration, Intermittent, Less than 6 Hours Per Day (ICD-10-PCS; 2021-01-05)
DX: A41.9 Sepsis, unspecified organism (principal); N18.6 End stage renal disease; E11.52 Type 2 diabetes mellitus with diabetic peripheral angiopathy with gangrene; I12.0 Hypertensive chronic kidney disease with stage 5 chronic kidney disease or end stage renal disease; L03.116 Cellulitis of left lower limb; I70.262 Atherosclerosis of native arteries of extremities with gangrene, left leg; E46 Unspecified protein-calorie malnutrition; M86.8X7 Other osteomyelitis, ankle and foot; E87.5 Hyperkalemia; E11.65 Type 2 diabetes mellitus with hyperglycemia; E11.22 Type 2 diabetes mellitus with diabetic chronic kidney disease; E11.40 Type 2 diabetes mellitus with diabetic neuropathy, unspecified; E03.9 Hypothyroidism, unspecified; E78.5 Hyperlipidemia, unspecified; I25.10 Atherosclerotic heart disease of native coronary artery without angina pectoris; D63.8 Anemia in other chronic diseases classified elsewhere; R74.8 Abnormal levels of other serum enzymes; E11.69 Type 2 diabetes mellitus with other specified complication; E66.9 Obesity, unspecified; Z68.35 Body mass index [BMI] 35.0-35.9, adult; Z99.2 Dependence on renal dialysis; Z79.02 Long term (current) use of antithrombotics/antiplatelets; Z90.49 Acquired absence of other specified parts of digestive tract; Z89.421 Acquired absence of other right toe(s); Z91.19 Patient's noncompliance with other medical treatment and regimen; Z82.3 Family history of stroke; Z83.3 Family history of diabetes mellitus; Z82.49 Family history of ischemic heart disease and other diseases of the circulatory system; Z82.0 Family history of epilepsy and other diseases of the nervous system; Z20.822 Contact with and (suspected) exposure to COVID-19
CPT/HCPCS: 36415; 70450; 71045; 73630; 74018; 74176; 75635; 80048; 80053; 80061; 80202; 82550; 82948; 83036; 83735; 83880; 84100; 84145; 84484; 85025; 85610; 85651; 85730; 86140; 86704; 86706; 87040; 87340; 87635; 87641; 88307; 88311; 90935; 93005; 93925; 97039; G0378; J0330; J0690; J1100; J1644; J1815; J2001; J2175; J2250; J2405; J2543; J2704; J2710; J3010; J3370; J3490; J7050; Q9967

== ENCOUNTER 2022-05-22 23:41 | Observation (INO) | payer MEDICARE, OTHER ==
[~2022-05-22] VITALS: Ht 167.6 cm; Wt 98.5 kg
[~2022-05-22 23:41] MED LIST changes: +AEC81 PO; +CLOP-31 PO; -CLOP75TA14 PO; +CLOP75TA32 PO; +GABA-529 PO; +PANT40TA54 PO; -PENT400T72 PO
[2022-05-23] VITALS (7 sets, daily range): BP systolic 118–158; BP diastolic 51–81
[2022-05-23 00:14] LABS: BASOPHILS % (AUTO) 0.1 % (0.0-5.0); HEMATOCRIT 38.1 % (42-54); LYMPHOCYTES % (AUTO) 6.8 % (21.0-51.0); MEAN CORPUSCULAR HGB CONC 32.5 g/dL (32.0-36.0); NEUTROPHILS % (AUTO) 90.5 % (40.0-77.0); PLATELET COUNT (AUTO) 382 K/uL (130-400); RED BLOOD CELL COUNT(AUTO) 4.14 MIL/uL (4.50-6.20); RED CELL DISTRIBUTION WIDTH 14.8 % (11.0-15.5); WHITE BLOOD COUNT (AUTO) 20.6 K/uL (4.8-10.8)
[2022-05-23 00:23] LABS: POTASSIUM 5.7 mmol/L (3.5-5.1); TOTAL PROTEIN, SERUM 8.8 g/dL (6.0-8.3)
[2022-05-23 00:32] LABS: CREATININE 8.5 mg/dL (0.5-1.5)
[2022-05-23 01:04] LABS: ABG HCO3 22.6 mmol/L (21.0-28.0); ABG OXYGEN SATURATION 96.2 % (95.0-99.0); ABG PCO2 38 mmHg (35-48)
[2022-05-23 01:07] LABS: APPEARANCE,URINE CLOUDY (CLEAR); BILIRUBIN,URINE NEGATIVE (NEGATIVE); COLOR,URINE AMBER (YELLOW); GLUCOSE, URINE (UA) NEGATIVE (NEGATIVE); KETONES,URINE NEGATIVE (NEGATIVE); LEUKOCYTE ESTERASE ,URINE MODERATE Leu/uL (NEGATIVE); NITRATE,URINE NEGATIVE (NEGATIVE); OCCULT BLOOD,URINE MODERATE (NEGATIVE); PROTEIN,URINE >=300 mg/dL (NEGATIVE); UROBILINOGEN,URINE 0.2 mg/dL (0.2-1.0)
[2022-05-23 01:19] LABS: BACTERIA,URINE Moderate /HPF (None Seen)
[2022-05-23 01:20] LABS: SQUAMOUS EPITHELIAL CELL,UR Rare /HPF (0-2)
[2022-05-23] MEDS ORDERED: 0.9% NACL 250ML 250 ML IV SCH (02:00)
[2022-05-23] MEDS ORDERED: INSULIN HUMULIN R 100 UNIT/ML 3ML IV ONE (02:00)
[2022-05-23] MEDS ORDERED: CEFTRIAXONE 1G VIAL ONE (04:12)
[2022-05-23] MEDS ORDERED: ONDANSETRON 4MG INJ IVP PRN (04:30)
[2022-05-23] MEDS ORDERED: LACTULOSE 20 GM/30 ML UDCUP PO PRN (04:30)
[2022-05-23] MEDS ORDERED: ACETAMINOPHEN 325 MG TAB PO PRN (04:30)
[2022-05-23] MEDS ORDERED: HYDRALAZINE 20MG/ML VIAL IV PRN (04:30)
[2022-05-23] MEDS ORDERED: DOCUSATE SODIUM 100 MG CAP PO PRN (04:30)
[2022-05-23] MEDS ORDERED: CLONIDINE HCL 0.1 MG TABLET PO PRN (04:30)
[2022-05-23] MEDS ORDERED: GLUCAGON 1MG KIT 1 MG ML IM PRN (04:30)
[2022-05-23] MEDS ORDERED: IPRATROPIUM/ALBUTEROL SULFATE 3 ML SOLUTION IH PRN (04:30)
[2022-05-23] MEDS ORDERED: DEXTROSE 50%-WATER 50 ML DISP.SYRIN IV PRN (04:30)
[2022-05-23] MEDS ORDERED: CEFTRIAXONE 1G VIAL IVP ONE (04:30)
[2022-05-23] MEDS: MEROPENEM 500 MG VIAL IVP SCH (05:27)
[2022-05-23] MEDS: INSULIN HUMULIN R 100 UNIT/ML 3ML SQ SCH ×6 (07:30→21:00)
[2022-05-23] MEDS ORDERED: FOLI0.8T22 PO (10:44)
[2022-05-23] MEDS ORDERED: PANTOPRAZOLE 40 MG TAB DR PO SCH (11:28)
[2022-05-23] MEDS ORDERED: NA ZIRCON CYCLOSIL(LOKELMA 10GM) PO SCH (12:30)
[2022-05-23] MEDS ORDERED: VANCOMYCIN 1G VIAL IVPB SCH (17:30)
[2022-05-23] MEDS ORDERED: VANCOMYCIN PROTOCOL PER PHARMACY IV SCH (17:30)
[2022-05-23] MEDS ORDERED: 0.9% NACL 250ML IV SCH (17:30)
[2022-05-23] MEDS ORDERED: VANCOMYCIN 1.75 GM/250 ML BAG 250 ML IV ONE (18:00)
[2022-05-23 18:22] LABS: POTASSIUM 4.8 mmol/L (3.5-5.1)
[2022-05-23 18:27] LABS: CREATININE 9.7 mg/dL (0.5-1.5)
[2022-05-23] MEDS: HEPARIN 5,000 UNIT VIAL SQ SCH (18:45)
[2022-05-23] MEDS: GABAPENTIN 100 MG CAPSULE PO SCH (21:23)
[2022-05-23] MEDS: METOPROLOL TARTRATE 50 MG TAB PO SCH (21:24)
[2022-05-23] MEDS: INSULIN GLARGINE 100 UNITS/ML 10 ML VIAL SQ SCH (21:27)
[2022-05-24] VITALS (18 sets, daily range): BP systolic 114–159; BP diastolic 58–81
[2022-05-24 04:49] LABS: BASOPHILS % (AUTO) 0.3 % (0.0-5.0); EOSINOPHILS % (AUTO) 1.1 % (0.0-8.0); HEMATOCRIT 36.7 % (42-54); LYMPHOCYTES % (AUTO) 20.9 % (21.0-51.0); MEAN CORPUSCULAR HEMOGLOBIN 30.3 pg (27.0-33.0); MEAN CORPUSCULAR HGB CONC 32.7 g/dL (32.0-36.0); MEAN CORPUSCULAR VOLUME 92.7 fL (79-99); MONOCYTES % (AUTO) 5.1 % (3.0-13.0); NEUTROPHILS % (AUTO) 71.5 % (40.0-77.0); PLATELET COUNT (AUTO) 383 K/uL (130-400); RED BLOOD CELL COUNT(AUTO) 3.96 MIL/uL (4.50-6.20); RED CELL DISTRIBUTION WIDTH 14.7 % (11.0-15.5); WHITE BLOOD COUNT (AUTO) 16.9 K/uL (4.8-10.8)
[2022-05-24 05:06] LABS: INR 0.93 (0.85-1.15); PROTHROMBIN TIME 10.2 SEC (9.6-11.6)
[2022-05-24 05:13] LABS: MAGNESIUM 2.2 mg/dL (1.80-2.40); PHOSPHORUS 4.9 mg/dL (2.5-4.9)
[2022-05-24] MEDS: MEROPENEM 500 MG VIAL IVP SCH (05:34)
[2022-05-24 05:36] LABS: CREATININE 10.4 mg/dL (0.5-1.5)
[2022-05-24] MEDS: HEPARIN 5,000 UNIT VIAL SQ SCH ×2 (05:45→18:30)
[2022-05-24] MEDS: INSULIN GLARGINE 100 UNITS/ML 10 ML VIAL SQ SCH ×2 (06:32→22:46)
[2022-05-24] MEDS: INSULIN HUMULIN R 100 UNIT/ML 3ML SQ SCH ×4 (06:33→21:00)
[2022-05-24] MEDS: Vitamin B Complex/Vit C/Folic Acid PO SCH (09:49)
[2022-05-24] MEDS: LOSARTAN 50 MG TABLET PO SCH (09:49)
[2022-05-24] MEDS: CLOPIDOGREL 75MG TAB PO SCH (09:49)
[2022-05-24] MEDS: PANTOPRAZOLE 40 MG TAB DR PO SCH (09:49)
[2022-05-24] MEDS: GABAPENTIN 100 MG CAPSULE PO SCH ×2 (09:49→22:30)
[2022-05-24] MEDS: METOPROLOL TARTRATE 50 MG TAB PO SCH ×2 (09:49→22:30)
[2022-05-25 04:42] VITALS: BP 87/44
[2022-05-25] MEDS: MEROPENEM 500 MG VIAL IVP SCH (04:57)
[2022-05-25 05:12] VITALS: BP 118/70
[2022-05-25 05:34] LABS: HEMATOCRIT 34.1 % (42-54); MEAN CORPUSCULAR HEMOGLOBIN 30.2 pg (27.0-33.0); MEAN CORPUSCULAR HGB CONC 34.3 g/dL (32.0-36.0); MEAN CORPUSCULAR VOLUME 88.1 fL (79-99); RED BLOOD CELL COUNT(AUTO) 3.87 MIL/uL (4.50-6.20); RED CELL DISTRIBUTION WIDTH 14.8 % (11.0-15.5); WHITE BLOOD COUNT (AUTO) 13.9 K/uL (4.8-10.8)
[2022-05-25 05:49] LABS: CRP QUANTITATIVE 3.6 mg/L (0.00-9.0); POTASSIUM 4.5 mmol/L (3.5-5.1)
[2022-05-25 05:56] LABS: CREATININE 8.8 mg/dL (0.5-1.5)
[2022-05-25] MEDS: INSULIN HUMULIN R 100 UNIT/ML 3ML SQ SCH ×3 (06:00→16:30)
[2022-05-25] MEDS: HEPARIN 5,000 UNIT VIAL SQ SCH (06:04)
[2022-05-25] MEDS: INSULIN GLARGINE 100 UNITS/ML 10 ML VIAL SQ SCH (06:07)
[2022-05-25 06:52] LABS: HEPATITIS B SURFACE ANTIGEN Non-Reactive (Nonreactive)
[2022-05-25 08:00] VITALS: BP 123/53
[2022-05-25] MEDS: LOSARTAN 50 MG TABLET PO SCH (10:31)
[2022-05-25] MEDS: METOPROLOL TARTRATE 50 MG TAB PO SCH (10:31)
[2022-05-25] MEDS: GABAPENTIN 100 MG CAPSULE PO SCH (10:31)
[2022-05-25] MEDS: Vitamin B Complex/Vit C/Folic Acid PO SCH (10:31)
[2022-05-25] MEDS: CLOPIDOGREL 75MG TAB PO SCH (10:31)
[2022-05-25] MEDS: PANTOPRAZOLE 40 MG TAB DR PO SCH (10:31)
[2022-05-25 11:54] VITALS: BP 122/62
[2022-05-25 16:00] VITALS: BP 125/58
[2022-05-25] MEDS ORDERED: LEVO500P29 IV (17:02)
[2022-05-26] MEDS ORDERED: VANCOMYCIN 750MG VIAL IVPB SCH (18:00)
== END 2022-05-25 20:00 | disposition home or self-care (01) ==
LOC: EDH 23:41 → EDHIP 05-23 04:15 → 3AH 05-23 08:04
PROVIDERS: ADMIT Internal Medicine Critical Care Medicine; ATTEND Internal Medicine Critical Care Medicine
DX: A41.89 Other specified sepsis (principal); U07.1 COVID-19; J12.82 Pneumonia due to coronavirus disease 2019; D72.829 Elevated white blood cell count, unspecified; D50.9 Iron deficiency anemia, unspecified; I12.0 Hypertensive chronic kidney disease with stage 5 chronic kidney disease or end stage renal disease; E11.22 Type 2 diabetes mellitus with diabetic chronic kidney disease; N18.6 End stage renal disease; D63.1 Anemia in chronic kidney disease; I73.9 Peripheral vascular disease, unspecified; E78.5 Hyperlipidemia, unspecified; E66.9 Obesity, unspecified; E11.65 Type 2 diabetes mellitus with hyperglycemia; N30.00 Acute cystitis without hematuria; R53.81 Other malaise; Z68.35 Body mass index [BMI] 35.0-35.9, adult; Z79.4 Long term (current) use of insulin; Z89.512 Acquired absence of left leg below knee; Z99.2 Dependence on renal dialysis; Z79.899 Other long term (current) drug therapy
CPT/HCPCS: 96372 ×3; 96361; 96365; 96366; 96375; 99284; 84484; 80048 ×3; 80053; 82803; 83880 ×2; 83690; 85025 ×2; 87040 ×2; 87088; 87804 ×2; 82948 ×12; 83605; 82010; 81001; 36415 ×3; 87635; 71045 ×2; 93005; 36600; 96376 ×2; 83615; 83735; 84100; 82728; 85378; 85610; 86706; 87340; 86704; 84145 ×2; 85027; 86140; J1815 ×4; G0378 ×61; C9803; J0696; J1644 ×4; J2185 ×3; J7050; J3370; 90935

== ENCOUNTER 2023-04-10 00:05 | Emergency (ER) | payer OTHER ==
[~2023-04-10] VITALS: Ht 152.4 cm; Wt 9.1 kg
[~2023-04-10 00:05] MED LIST changes: -AEC81 PO; -AMLO-258 PO; -ATOR40TA71 PO; -CLOP-31 PO; +FOLI0.8T22 PO; -FOLI1TAB85 PO; -FURO40TA5 PO; +LEVO500P29 IV; -SEVE800T7 PO
[2023-04-10 00:15] VITALS: BP 120/63; PULSE 75; RESP 18; O2SAT 98
[2023-04-10] MEDS ORDERED: CIPR7.5D7 OT (02:16)
[2023-04-10] MEDS ORDERED: AMOX-427 PO (02:16)
[2023-04-10] MEDS ORDERED: CEFTRIAXONE 2GM VIAL IJ ONE (02:30)
== END 2023-04-10 02:46 | disposition home or self-care (01) ==
LOC: EDH 00:05
DX: H60.92 Unspecified otitis externa, left ear (principal); I12.0 Hypertensive chronic kidney disease with stage 5 chronic kidney disease or end stage renal disease; E11.22 Type 2 diabetes mellitus with diabetic chronic kidney disease; N18.6 End stage renal disease; Z99.2 Dependence on renal dialysis; Z79.02 Long term (current) use of antithrombotics/antiplatelets; Z79.899 Other long term (current) drug therapy; Z89.512 Acquired absence of left leg below knee; Z90.49 Acquired absence of other specified parts of digestive tract
CPT/HCPCS: 96372; 99283; J0696

== ENCOUNTER 2024-04-25 21:15 | Emergency (ER) | payer OTHER ==
[~2024-04-25] VITALS: Ht 167.6 cm; Wt 97.1 kg
[~2024-04-25 21:15] MED LIST changes: +AMLO-258 PO; +AMOX-427 PO; +CIPR7.5D7 OT; +FURO40TA5 PO; +GLIP10TA16 PO; -GLIP10TA9 PO; +OFLO5DRO OD; +SEVE800T7 PO
--- NOTE | 2024-04-25 21:27 | ERN ---
ED Note History of Present Illness Stated Complaint: C/O PAIN WITH SWELLING TO LEFT TESTICLE ONSET Chief Complaint: Testicular Injury/Pain Time Seen by MD: 21:22 Dictation: PATIENT IS A 63-YEAR-OLD MALE COMING IN TODAY WITH COMPLAINTS OF LEFT TESTICULAR PAIN AND SWELLING ONSET WAS TUESDAY. DENIES FEVER CHILLS NAUSEA VOMITING. NO FLANK PAIN. STATES HE HAS NOT BEEN TO SEE HIS PRIMARY CARE DOCTOR BECAUSE HE THOUGHT IT WAS GOING TO GO AWAY. IN TRIAGE ROOM Allergies: Coded Allergies: No Known Drug Allergies (Unverified Allergy, Unknown, 09/13/16) Home Meds Active Scripts Acetaminophen with Codeine (Acetaminophen-Cod #3 Tablet) 300 Mg-30 Mg Tablet, 1 TAB PO Q4H PRN for MODERATE TO SEVERE PAIN, #15 TAB 0 Refills Prov:JCARLOS VIDES INTEGRATED CIRCUITS INSPECTOR 04/25/24 Levofloxacin (Levofloxacin) 500 Mg Tablet, 1 TAB PO QODAY for 7 Days, #7 TAB 0 Refills Prov:JCARLOS VIDES NP 04/25/24 Ciprofloxacin HCl/Dexameth (Ciproflox-Dexameth Otic Susp) 0.3 %-0.1 % Drops.susp, 7.5 ML OT BID for 10 Days, #4 DROP 0 Refills Prov:IAIN ROWLAND Sr., MD 04/10/23 Amoxicillin/Potassium Clav (Augmentin Xr 1,000-62.5 Tab) 1,000 Mg-62.5 Mg Tab.er.12h, 1 EACH PO BID for 10 Days, #20 TAB 0 Refills Prov:IAIN ROWLAND Sr., MD 04/10/23 Levofloxacin/Dextrose 5%-Water (Levaquin 500 mg/D5w 100 ml) 500 Mg/100 Ml Piggyback, 250 MG IV DAILY, #7 ML Prov:TERRY KIM INTEGRATED CIRCUITS INSPECTOR 05/25/22 Reported Medications Ofloxacin (Ofloxacin) 0.3 % Drops, 5 ML OD QID, DROP 07/25/23 Furosemide (Furosemide) 40 Mg Tablet, 40 MG PO AM, TAB 07/25/23 Amlodipine Besylate (Amlodipine Besylate) 10 Mg Tablet, 10 MG PO DAILY for 30 Days, #30 TAB 0 Refills 07/25/23 Sevelamer Carbonate (Renvela) 800 Mg Tablet, 1600 MG PO TIDMEALS, TAB 07/25/23 Folic Acid/Vitamin B Comp W-C (Calli-Ninfa Tablet) 0.8 Mg Tablet, 0.8 MG PO DAILY, TAB 05/23/22 Losartan Potassium (Losartan Potassium) 50 Mg Tablet, 50 MG PO DAILY, TAB 12/29/20 Clopidogrel Bisulfate (Clopidogrel) 75 Mg Tablet, 75 MG PO DAILY, TAB 12/29/20 Gabapentin (Gabapentin) 100 Mg Capsule, 100 MG PO BID, CAP 12/29/20 Glipizide (Glipizide) 10 Mg Tablet, 10 MG PO BIDAC, TAB 12/29/20 Pantoprazole Sodium (Pantoprazole Sodium) 40 Mg Tablet.dr, 40 MG PO DAILY, TAB 12/29/20 Metoprolol Tartrate (Metoprolol Tartrate) 50 Mg Tablet, 2 TAB PO BID, TAB 02/22/19 Past Medical History Past Medical History: Diabetes-Type II, Hypertension, Renal Failure Additional Past Medical Hx: ESRD DIALYSIS, MRSA, E COLI, ESBL Surgical History: Other Surgical History Other: LT BKA Family History: DM, HTN Social History: Negative, Lives with family RN Note Reviewed/Agreed w/PFSH: Yes Review of System Dictation CONSTITUTIONAL: NEGATIVE EXCEPT FOR HPI HEAD/FACE: NEGATIVE EXCEPT FOR HPI EENT: NEGATIVE EXCEPT FOR HPI RESPIRATORY: NEGATIVE EXCEPT FOR HPI GASTROINTESTINAL/ABDOMINAL: NEGATIVE EXCEPT FOR HPI GENITOURINARY: NEGATIVE EXCEPT FOR HPI LEFT TESTICULAR PAIN AND SWELLING SINCE TUESDAY MUSCULOSKELETAL: NEGATIVE EXCEPT FOR HPI INTEGUMENTARY: NEGATIVE EXCEPT FOR HPI NEUROLOGICAL/PSYCH: NEGATIVE EXCEPT FOR HPI HEMATOLOGIC/LYMPHATIC: NEGATIVE EXCEPT FOR HPI ALL SYSTEMS NEGATIVE, EXCEPT NOTED ABOVE. 13 POINT REVIEW OF SYSTEMS ASSESSED AND ALL NEGATIVE EXCEPT FOR ABOVE. Initial Vital Sign VS Vital Signs Date Time Temp Pulse Resp B/P (MAP) Pulse Ox O2 Delivery O2 Flow Rate FiO2 04/25/24 21:19 97.0 83 20 113/62 96 Room Air Physical Exam Dictation VITAL SIGNS REVIEWED GENERAL APPEARANCE: ALERT, ORIENTED X 3, MODERATE ACUTE DISTRESS, WELL DEVELOPED, NOURISHED. OBESE HEAD AND FACE: NON-TRAUMATIC. EYES: PERRL, PINK CONJUNCTIVAS, EYELID NO TRAUMA, ANTERIOR CHAMBER WITH ARCUS SENILIS. EARS: PINNAS INTACT AND NO SIGNS OF TRAUMA OR ERYTHEMA EAR CANALS CLEAR AND NO DISCHARGE TM NO ERYTHEMA NOSE: NO DISCHARGE, NO BLEEDING. OROPHARYNX: MOUTH NORMAL, TONGUE PINK, PHARYNX CLEAR,NO ERYTHEMA, TONSILS NO EXUDATES, NO ABSCESSES NOTED, MUCOUS MEMBRANE MOIST NECK: SUPPLE, NON-TENDER, NO THYROMEGALY, NO MASSES, NO JVD, NO BRUITS BREAST:DEFERRED CHEST:NO TENDERNESS, NO CREPITUS, NO PARADOXICAL MOVEMENT, NO RETRACTIONS LUNGS:CLEAR, WELL-VENTILATED, SYMMETRIC, NO RALES, NO WHEEZING, NO RHONCHI, NO STRIDOR, GOOD BREATH SOUNDS BILATERALLY HEART: REGULAR RATE, REGULAR RHYTHM, NO MURMUR, NO GALLOPS VASCULAR: NO PERIPHERAL EDEMA, ABDOMEN: SOFT, POSITIVE BOWEL SOUNDS, NONDISTENDED, NO GUARDING, NONTENDER, NO REBOUND, NO MASSES NO HEPATOMEGALY, NO SPLENOMEGALY, NO LEIVA'S SIGN, NO HERNIAS. RECTAL: DEFERRED GENITAL: Deferred, patient refused exam NEUROLOGICAL: NORMAL SPEECH, MOTOR FUNCTION INTACT, SENSORY FUNCTION INTACT MUSCULOSKELETAL: NECK NONTENDER, FULL RANGE OF MOTION, BACK NONTENDER, FULL RANGE OF MOTION, EXTREMITIES: NONTENDER, FULL RANGE OF MOTION LEFT BKA WITH PROSTHETIC LEG SKIN: COLOR PINK, DRY, NO TURGOR, NO RASH, NO LACERATIONS, NO ABRASIONS, NO CONTUSIONS. LYMPHATIC: DEFERRED Results (Laboratory/Radiology) Laboratory/Radiology Laboratory Tests Test 04/25/24 21:39 White Blood Count 15.7 K/uL (4.8-10.8) H Red Blood Count 4.38 MIL/uL (4.50-6.20) L Hemoglobin 13.0 g/dL (14.0-18.0) L Hematocrit 40.2 % (42-54) L Mean Corpuscular Volume 91.8 fL (79-99) Mean Corpuscular Hemoglobin 29.7 pg (27.0-33.0) Mean Corpuscular Hemoglobin Concent 32.3 g/dL (32.0-36.0) Red Cell Distribution Width 15.5 % (11.0-15.5) Platelet Count 510 K/uL (130-400) H Mean Platelet Volume 8.9 fL (7.5-10.5) Immature Granulocyte % (Auto) 0.5 % (0-1) Neutrophils (%) (Auto) 78.6 % (40.0-77.0) H Lymphocytes (%) (Auto) 12.7 % (21.0-51.0) L Monocytes (%) (Auto) 6.4 % (3.0-13.0) Eosinophils (%) (Auto) 1.1 % (0.0-8.0) Basophils (%) (Auto) 0.7 % (0.0-5.0) Neutrophils # (Auto) 12.3 K/uL (1.8-7.7) H Lymphocytes # (Auto) 2.0 K/uL (1.0-4.8) Monocytes # (Auto) 1.0 K/uL (0.1-1.0) Eosinophils # (Auto) 0.18 K/uL (0.00-0.70) Basophils # (Auto) 0.11 K/uL (0.00-0.20) Absolute Immature Granulocyte (auto 0.08 K/uL (0-1) Nucleated Red Blood Cells 0.0 % (0.0-0.19) Sodium Level 135 mmol/L (136-145) L Potassium Level 5.2 mmol/L (3.5-5.1) H Chloride Level 95 mmol/L (101-111) L Carbon Dioxide Level 33 mmol/L (21-32) H Blood Urea Nitrogen 29 mg/dL (7-18) H Creatinine 6.5 mg/dL (0.5-1.3) H Glomerular Filtration Rate Calc 9 mL/min (>90) Random Glucose 82 mg/dL (70-105) Total Calcium 8.5 mg/dL (8.5-10.1) US SCROTUM & CONTENTS HISTORY: Left testicular pain COMPARISON: None TECHNIQUE: Duplex scrotal ultrasound study was performed. FINDINGS: The right testes measures 3 x 2.9 x 3.3 cm. The left testes measures 3.2 x 2.8 x 2.4 cm. No evidence of intratesticular mass or abnormal calcification is seen. Normal flow is seen of both testes. Right epididymis. Increased flow is seen in the left epididymis suggestive of left epididymitis. Multiple right epididymal cysts are seen with the largest measuring 2.7 cm. There appears be left inguinal hernia with fat content. Left epididymis is enlarged. No hydroceles or varicocele is seen. IMPRESSION: 1. No evidence of intratesticular mass is seen. 2. Findings suspicious for left epididymitis. 3. left inguinal hernia with fat content. Labs Reviewed?: Yes ED Course ED Course Orders Procedure Category Date Status Time Us Scrotum & Contents US 04/25/24 Resulted 21:24 Cbc With Differential LAB 04/25/24 Complete 21:24 Urinalysis Profile LAB 04/25/24 Logged 21:24 Basic Metabolic Panel LAB 04/25/24 Complete 21:24 Ceftriaxone 1g Vial PHA 04/25/24 Complete (Rocephine 1g Inj) 23:30 Levofloxacin 500mg PHA 04/25/24 Complete Tab (Levaquin 500mg T 23:30 Acetaminophen With PHA 04/26/24 In Process Codeine (Tylenol-Code 00:00 Current Medications Medications (Trade) Dose Ordered Sig/Gabriella Route PRN Reason Start Time Stop Time Status Last Admin Dose Admin Acetaminophen/ Codeine Phosphate (TYLenol-coDEINE TAB) 2 tab ONCE ONCE PO 04/26/24 00:00 04/26/24 00:01 Ceftriaxone Sodium (ROCEphine 1G INJ) 1 gm ONCE ONCE IM 04/25/24 23:30 04/25/24 23:31 DC Levofloxacin (LEvaquIN 500MG TAB) 500 mg ONCE ONCE PO 04/25/24 23:30 04/25/24 23:31 DC Vital Signs Date Time Temp Pulse Resp B/P (MAP) Pulse Ox O2 Delivery O2 Flow Rate FiO2 04/25/24 21:19 97.0 83 20 113/62 96 Room Air 2350, SPOKE WITH PATIENT AT LENGTH REGARDING DIAGNOSIS TO INCLUDE HIS LEUKOCYTOSIS. HE AND HIS STATE THAT THEY DO NOT WISH TO BE ADMITTED TO THE HOSPITAL AND WANT TO BE TREATED AND FOLLOW UP WITH HER DOCTOR OUTPATIENT. I ENCOURAGED PATIENT TO RETURN IF ANY COMPLICATIONS TO INCLUDE FEVER MORE THAN 101 NAUSEA AND VOMITING OR INCREASED PAIN AND HE AGREED. Medical Decision Making MDM MDM: DIFFERENTIAL DIAGNOSIS: ORCHITIS/EPIDIDYMITIS/TORSION/HERNIA RATIONALE: TESTS CONSIDERED AND ORDERED SECONDARY TO SHARED DECISION MAKING INCLUDE: LABS/ULTRASOUND PREVIOUS OUTSIDE RECORDS REVIEWED: OLD ER VISITS. REVIEWED RISK OF COMPLICATION AND/OR MORBIDITY OR MORTALITY OF PATIENT MANAGEMENT: MILD MEDICATIONS-PER MEDICATION RECONCILIATION NEED FOR HOSPITALIZATION: PATIENT DOES NOT MEET CRITERIA FOR HOSPITALIZATION. PATIENT REFUSED ADMISSION AT THIS TIME STATES HE WISHES TO BE TREATED AND SENT HOME OUTPATIENT AND WILL RETURN IF ANY COMPLICATIONS NEED FOR EMERGENCY MAJOR/MINOR SURGERY: NO THERE ARE NO SOCIAL CONCERNS WITH THIS PATIENT. PRESCRIPTION DRUG MANAGEMENT PRESCRIPTIONS WILL INCLUDE SYMPTOMATIC CARE PATIENT'S PRIOR EXTERNAL MEDICAL RECORDS FROM OTHER ER VISITS WERE REVIEWED BY ME INDICATED. PRIOR TESTING AND RESULTS FROM PREVIOUS VISITS WERE REVIEWED. PRIOR TESTS WERE TAKEN INTO ACCOUNT WITH MEDICAL DECISION MAKING AND RESOURCE UTILIZATION, INDEPENDENT HISTORIAN/HISTORIANS WERE USED TO OBTAIN COMPLETE MEDICAL HISTORY. I INDEPENDENTLY INTERPRETED THE TEST THAT WERE PERFORMED, RESULTS WERE REVIEWED BY ME AND CONSIDERED FINDINGS ON RADIOLOGY IF ORDERED. MEDICAL MANAGEMENT AND EXAMINATION INTERPRETATION DISCUSSIONS WERE HAD BY ME WITH OTHER QUALIFIED HEALTHCARE PROFESSIONALS INDICATED FOR THE PATIENT'S CARE. DX & DISP Disposition: Discharge Departure Impression: Primary Impression: Left epididymitis Additional Impressions: ESRD (end stage renal disease) on dialysis, Hype rkalemia Condition: Stable Scripts Acetaminophen with Codeine (Acetaminophen-Cod #3 Tablet) 300 Mg-30 Mg Tablet 1 TAB PO Q4H PRN for MODERATE TO SEVERE PAIN, #15 TAB 0 Refills Prov: JCARLOS VIDES NP 04/25/24 Levofloxacin (Levofloxacin) 500 Mg Tablet 1 TAB PO QODAY for 7 Days, #7 TAB 0 Refills Prov: JCARLOS VIDES INTEGRATED CIRCUITS INSPECTOR 04/25/24 Additional Instructions: Follow-up with primary care provider in 1 to 2 days. Take medications as directed here in the emergency room. Okay to continue home medications unless otherwise discussed during your visit in the emergency room today. Return to your nearest emergency room if symptoms worsen or if there is no improvement. Call 911 if you need immediate assistance. Take Tylenol or Motrin [id number] as needed and if no contraindications are present. Increase oral hydration. A wound culture or urine culture was ordered here in the emergency room department please follow-up with primary care provider and advise them to get repeat ports from our facility. If you had any Jovanny wrap/splints that were applied here, please do not remove them until you see your primary care or specialty. Take medications as directed. Take antibiotics as directed until gone. Follow up with your primary care doctor in 1-2 days. Referrals: ENEDINA GONG MD (PCP) Time of Disposition: 23:53 I have reviewed the case, and I agree with, Diagnosis and Plan JCARLOS VIDES NP Apr 25, 2024 21:27
[2024-04-25 21:45] LABS: BASOPHILS # (AUTO) 0.11 K/uL (0.00-0.20); BASOPHILS % (AUTO) 0.7 % (0.0-5.0); EOSINOPHILS # (AUTO) 0.18 K/uL (0.00-0.70); EOSINOPHILS % (AUTO) 1.1 % (0.0-8.0); HEMATOCRIT 40.2 % (42-54); IMMATURE GRANULOCYTE ABSOLUTE 0.08 K/uL (0-1); LYMPHOCYTES % (AUTO) 12.7 % (21.0-51.0); MEAN CORPUSCULAR HEMOGLOBIN 29.7 pg (27.0-33.0); MEAN CORPUSCULAR HGB CONC 32.3 g/dL (32.0-36.0); MEAN CORPUSCULAR VOLUME 91.8 fL (79-99); MONOCYTES % (AUTO) 6.4 % (3.0-13.0); NEUTROPHILS # (AUTO) 12.3 K/uL (1.8-7.7); NEUTROPHILS % (AUTO) 78.6 % (40.0-77.0); PLATELET COUNT (AUTO) 510 K/uL (130-400); RED BLOOD CELL COUNT(AUTO) 4.38 MIL/uL (4.50-6.20); RED CELL DISTRIBUTION WIDTH 15.5 % (11.0-15.5); WHITE BLOOD COUNT (AUTO) 15.7 K/uL (4.8-10.8)
[2024-04-25 21:56] LABS: CREATININE 6.5 mg/dL (0.5-1.3); POTASSIUM 5.2 mmol/L (3.5-5.1)
--- NOTE | 2024-04-25 22:42 | HMCIMG ---
US SCROTUM & CONTENTS HISTORY: Left testicular pain COMPARISON: None TECHNIQUE: Duplex scrotal ultrasound study was performed. FINDINGS: The right testes measures 3 x 2.9 x 3.3 cm. The left testes measures 3.2 x 2.8 x 2.4 cm. No evidence of intratesticular mass or abnormal calcification is seen. Normal flow is seen of both testes. Right epididymis. Increased flow is seen in the left epididymis suggestive of left epididymitis. Multiple right epididymal cysts are seen with the largest measuring 2.7 cm. There appears be left inguinal hernia with fat content. Left epididymis is enlarged. No hydroceles or varicocele is seen. IMPRESSION: 1. No evidence of intratesticular mass is seen. 2. Findings suspicious for left epididymitis. 3. left inguinal hernia with fat content.
[2024-04-25] MEDS ORDERED: ACET-2079 PO (23:55)
[2024-04-25] MEDS ORDERED: LEVO-70 PO (23:55)
[2024-04-26 00:01] VITALS: BP 120/88; PULSE 66; RESP 20; TEMP 97.7; O2SAT 99
[2024-04-26] MEDS: levoFLOXacin 500 MG TABLET PO ONE (00:02)
[2024-04-26] MEDS: acetaMINOPHEN WITH coDEINE 1 TAB TAB PO ONE (00:02)
[2024-04-26] MEDS: cefTRIAXone 1G VIAL IM ONE (00:02)
[2024-05-02] MEDS ORDERED: AMOX-426 PO (16:34)
== END 2024-04-26 00:07 | disposition home or self-care (01) ==
LOC: EDH 21:15
DX: N45.1 Epididymitis (principal); I12.0 Hypertensive chronic kidney disease with stage 5 chronic kidney disease or end stage renal disease; E11.22 Type 2 diabetes mellitus with diabetic chronic kidney disease; N18.6 End stage renal disease; E87.5 Hyperkalemia; Z79.02 Long term (current) use of antithrombotics/antiplatelets; Z79.899 Other long term (current) drug therapy; Z89.512 Acquired absence of left leg below knee; Z99.2 Dependence on renal dialysis
CPT/HCPCS: 36415; 76870; 80048; 85025; 96372; 99285; J0696

== ENCOUNTER 2024-07-29 17:25 | Emergency (ER) | payer OTHER ==
[~2024-07-29] VITALS: Ht 167.6 cm; Wt 95.7 kg
[~2024-07-29 17:25] MED LIST changes: +ACET-2079 PO; +AMOX-426 PO; -AMOX-427 PO; -CIPR7.5D7 OT; -FOLI0.8T22 PO; -FURO40TA5 PO; +LEVO-70 PO; -LEVO500P29 IV; -OFLO5DRO OD; -SEVE800T7 PO
[2024-07-29 18:32] LABS: BASOPHILS # (AUTO) 0.07 K/uL (0.00-0.20); BASOPHILS % (AUTO) 0.4 % (0.0-5.0); EOSINOPHILS # (AUTO) 0.08 K/uL (0.00-0.70); EOSINOPHILS % (AUTO) 0.4 % (0.0-8.0); IMMATURE GRANULOCYTE ABSOLUTE 0.09 K/uL (0-1); LYMPHOCYTES # (AUTO) 0.9 K/uL (1.0-4.8); MEAN CORPUSCULAR HGB CONC 32.2 g/dL (32.0-36.0); MEAN CORPUSCULAR VOLUME 93.2 fL (79-99); MONOCYTES # (AUTO) 0.4 K/uL (0.1-1.0); MONOCYTES % (AUTO) 2.1 % (3.0-13.0); NEUTROPHILS # (AUTO) 17.1 K/uL (1.8-7.7); NEUTROPHILS % (AUTO) 91.6 % (40.0-77.0); PLATELET COUNT (AUTO) 324 K/uL (130-400); RED CELL DISTRIBUTION WIDTH 15.9 % (11.0-15.5); WHITE BLOOD COUNT (AUTO) 18.6 K/uL (4.8-10.8)
[2024-07-29 18:54] LABS: POTASSIUM 5.5 mmol/L (3.5-5.1)
[2024-07-29 18:59] LABS: SARS-CoV-2, RNA, NAAT NEGATIVE SARS CoV-2 (NEGATIVE)
--- NOTE | 2024-07-29 19:01 | ERN ---
General Chief Complaint: Flu Symptoms Stated Complaint: HIGH FEVER Time Seen by MD: 17:26 Source: patient History of Present Illness Initial Comments PATIENT IS A 64-YEAR-OLD MALE COMING IN TO BE EVALUATED FOR FLU-LIKE SYMPTOMS. PATIENT STATES THAT HE HAS BEEN HAVING FEVER AND CHILLS FOR A COUPLE OF DAYS AND HE WAS HERE FOR FURTHER EVALUATION. Allergies: Coded Allergies: No Known Drug Allergies (Unverified Allergy, Unknown, 09/13/16) Home Meds Active Scripts Amoxicillin/Potassium Clav (Augmentin 500-125 Tablet) 500 Mg-125 Mg Tablet, 1 TAB PO DAILY for 7 Days, #7 TAB 0 Refills Prov:RACHAEL BRAVO PA 05/02/24 Acetaminophen with Codeine (Acetaminophen-Cod #3 Tablet) 300 Mg-30 Mg Tablet, 1 TAB PO Q4H PRN for MODERATE TO SEVERE PAIN, #15 TAB 0 Refills Prov:JCARLOS VIDES DIRECTOR SPECIALTY 04/25/24 Levofloxacin (Levofloxacin) 500 Mg Tablet, 1 TAB PO QODAY for 7 Days, #7 TAB 0 Refills Prov:JCARLOS VIDES DIRECTOR SPECIALTY 04/25/24 Reported Medications Amlodipine Besylate (Amlodipine Besylate) 10 Mg Tablet, 10 MG PO DAILY for 30 Days, #30 TAB 0 Refills 07/25/23 Losartan Potassium (Losartan Potassium) 50 Mg Tablet, 50 MG PO DAILY, TAB 12/29/20 Clopidogrel Bisulfate (Clopidogrel) 75 Mg Tablet, 75 MG PO DAILY, TAB 12/29/20 Gabapentin (Gabapentin) 100 Mg Capsule, 100 MG PO BID, CAP 12/29/20 Glipizide (Glipizide) 10 Mg Tablet, 10 MG PO BIDAC, TAB 12/29/20 Pantoprazole Sodium (Pantoprazole Sodium) 40 Mg Tablet.dr, 40 MG PO DAILY, TAB 12/29/20 Metoprolol Tartrate (Metoprolol Tartrate) 50 Mg Tablet, 2 TAB PO BID, TAB 02/22/19 Past Medical History Past Medical History: Diabetes-Type II, Hypertension, Renal Failure Medical History Other: ESRD DIALYSIS, MRSA, E COLI, ESBL Past Surgical History: Cholecystectomy Surgical History Other: LEFT BKA Family History Family History: DM, HTN Social History Social History: Negative, Lives with family ROS Dictation CONSTITUTIONAL: NO CHILLS, NO FEVER, NO WEAKNESS, NO DIAPHORESIS, NO MALAISE. HEAD/FACE: NO SIGNS OF TRAUMA. EENT: NO EYE PAIN, NO BLURRED VISION, NO TEARING, NO DOUBLE VISION, NO EAR PAIN, NO EAR DISCHARGE, NO NOSE PAIN, NO NASAL CONGESTION, NO THROAT PAIN, NO THROAT SWELLING, NO MOUTH PAIN. RESPIRATORY: NO COUGH, NO ORTHOPNEA, NO SOB, NO STRIDOR, NO WHEEZING. CARDIOVASCULAR: NO CHEST PAIN, NO EDEMA, NO PALPITATIONS, NO SYNCOPE. GASTROINTESTINAL/ABDOMINAL: NO ABDOMINAL PAIN, NO CONSTIPATION, NO DIARRHEA, NO NAUSEA, NO VOMITING. GENITOURINARY: NO ABNORMAL DISCHARGE, NO DYSURIA, NO FREQUENT URINATION, NO HEMATURIA. NO COMPLAINTS OF PAIN IN THE GENITALS. MUSCULOSKELETAL: NO BACK PAIN, NO GOUT, NO JOINT PAIN, NO JOINT SWELLING, NO MUSCLE PAIN, NO MUSCLE STIFFNESS, NO NECK PAIN. INTEGUMENTARY: NO CHANGE IN COLOR, NO CHANGE IN HAIR/NAILS, NO DRYNESS, NO LESION, NO LUMPS, NO RASH. NEUROLOGICAL/PSYCH: NO ANXIETY, NOT DEPRESSED, NO EMOTIONAL PROBLEM, NO HEADACHE, NO NUMBNESS, NO PRE-EXISTING DEFICIT, NO HISTORY OF SEIZURES, NO TREMORS, NO WEAKNESS. HEMATOLOGIC/LYMPHATIC: NOT ANEMIC, NO HISTORY OF BLOOD CLOTS, NO APPARENT BLEEDING, NO BRUISING, GLANDS NOT SWOLLEN. ALL SYSTEMS NEGATIVE, EXCEPT NOTED. Physical Exam Physical Exam Dictation VITAL SIGNS: REVIEWED. GENERAL APPEARANCE: ALERT, ORIENTED X3, NO ACUTE DISTRESS, OBESE. HEAD AND FACE: NON-TRAUMATIC. EYES: PERRL, PINK CONJUNCTIVAS, EYELID NO TRAUMA, ANTERIOR CHAMBER CLEAR. EARS: PINNAS INTACT AND NO SIGNS OF TRAUMA OR ERYTHEMA. EAR CANALS CLEAR AND NO DISCHARGE. TMS NO ERYTHEMA. NOSE: NO DISCHARGE, NO BLEEDING. OROPHARYNX: MOUTH NORMAL, TEETH NO CARIES, TONGUE PINK. PHARYNX CLEAR, NO ERYTHEMA. TONSILS NO EXUDATES, NO ABSCESSES NOTED. MUCOUS MEMBRANE MOIST. NECK: SUPPLE, NON-TENDER, NO THYROMEGALY, NO MASSES, NO JVD, NO BRUITS. BREAST: DEFERRED. CHEST: NO TENDERNESS, NO CREPITUS, NO PARADOXICAL MOVEMENT, NO RETRACTIONS. LUNGS: CLEAR, WELL-VENTILATED, SYMMETRIC, NO RALES, NO WHEEZING, NO RHONCHI, NO STRIDOR, GOOD BREATH SOUNDS BILATERALLY. HEART: REGULAR RATE, REGULAR RHYTHM, NO MURMUR, NO GALLOPS. VASCULAR: NO PERIPHERAL EDEMA. ABDOMEN: SOFT, POSITIVE BOWEL SOUNDS, NONDISTENDED, NO GUARDING, NONTENDER, NO REBOUND, NO MASSES NO HEPATOMEGALY, NO SPLENOMEGALY, NO LEIVA'S SIGN, NO HERNIAS. RECTAL: DEFERRED. GENITAL: DEFERRED. NEUROLOGICAL: NORMAL SPEECH, GROSS MOTOR FUNCTION INTACT, GROSS SENSORY FUNCTION INTACT. MUSCULOSKELETAL: NECK NONTENDER, FULL RANGE OF MOTION, BACK NONTENDER, FULL RANGE OF MOTION. EXTREMITIES: NONTENDER, FULL RANGE OF MOTION. SKIN: COLOR PINK, DRY, NO TURGOR, NO RASH, NO LACERATIONS, NO ABRASIONS, NO CONTUSIONS. LYMPHATICS: DEFERRED. Results Laboratory and Microbiology Lab and Micro Result Laboratory Tests Test 07/29/24 18:16 07/29/24 18:25 07/29/24 19:22 White Blood Count 18.6 K/uL (4.8-10.8) H Red Blood Count 4.40 MIL/uL (4.50-6.20) L Hemoglobin 13.2 g/dL (14.0-18.0) L Hematocrit 41.0 % (42-54) L Mean Corpuscular Volume 93.2 fL (79-99) Mean Corpuscular Hemoglobin 30.0 pg (27.0-33.0) Mean Corpuscular Hemoglobin Concent 32.2 g/dL (32.0-36.0) Red Cell Distribution Width 15.9 % (11.0-15.5) H Platelet Count 324 K/uL (130-400) Mean Platelet Volume 9.3 fL (7.5-10.5) Immature Granulocyte % (Auto) 0.5 % (0-1) Neutrophils (%) (Auto) 91.6 % (40.0-77.0) H Lymphocytes (%) (Auto) 5.0 % (21.0-51.0) L Monocytes (%) (Auto) 2.1 % (3.0-13.0) L Eosinophils (%) (Auto) 0.4 % (0.0-8.0) Basophils (%) (Auto) 0.4 % (0.0-5.0) Neutrophils # (Auto) 17.1 K/uL (1.8-7.7) H Lymphocytes # (Auto) 0.9 K/uL (1.0-4.8) L Monocytes # (Auto) 0.4 K/uL (0.1-1.0) Eosinophils # (Auto) 0.08 K/uL (0.00-0.70) Basophils # (Auto) 0.07 K/uL (0.00-0.20) Absolute Immature Granulocyte (auto 0.09 K/uL (0-1) Nucleated Red Blood Cells 0.0 % (0.0-0.19) White Cell Morphology Comment See comments Sodium Level 129 mmol/L (136-145) L Potassium Level 5.5 mmol/L (3.5-5.1) H Chloride Level 90 mmol/L (101-111) *L Carbon Dioxide Level 33 mmol/L (21-32) H Blood Urea Nitrogen 53 mg/dL (7-18) H Creatinine 11.0 mg/dL (0.5-1.3) *H Glomerular Filtration Rate Calc 5 mL/min (>90) Random Glucose 195 mg/dL (70-105) H Lactic Acid Level 2.3 mmol/L (0.8-2.5) Total Calcium 8.9 mg/dL (8.5-10.1) Total Creatine Kinase 87 U/L (21-232) # Troponin I High Sensitivity 15 ng/L (4-75) Influenza Type A Antigen Negative For Type A Influenza Type B Antigen Negative For Type B SARS-CoV-2, RNA, NAAT NEGATIVE SARS CoV-2 Group A Streptococcus Rapid negative (NEGATIVE) Labs Reviewed?: Yes MDM MDM: DIFFERENTIAL DIAGNOSIS: SEPSIS, HYPERKALEMIA, DEHYDRATION, RATIONALE: TESTS CONSIDERED AND ORDERED SECONDARY TO SHARED DECISION MAKING INCLUDE: LABS, ECG AND RADIOLOGY PREVIOUS OUTSIDE RECORDS REVIEWED: OLD ER VISITS. RISK OF COMPLICATION AND/OR MORBIDITY OR MORTALITY OF PATIENT MANAGEMENT: NONE MEDICATIONS-PER MEDICATION RECONCILIATION NEED FOR HOSPITALIZATION: PATIENT DOES MEET CRITERIA FOR HOSPITALIZATION. NEED FOR EMERGENCY MAJOR/MINOR SURGERY: NO THERE ARE NO SOCIAL CONCERNS WITH THIS PATIENT. PRESCRIPTION DRUG MANAGEMENT PRESCRIPTIONS WILL INCLUDE SYMPTOMATIC CARE PATIENT'S PRIOR EXTERNAL MEDICAL RECORDS FROM OTHER ER VISITS WERE REVIEWED BY ME INDICATED. PRIOR TESTING AND RESULTS FROM PREVIOUS VISITS WERE REVIEWED. PRIOR TESTS WERE TAKEN INTO ACCOUNT WITH MEDICAL DECISION MAKING AND RESOURCE UTILIZATION, INDEPENDENT HISTORIAN/HISTORIANS WERE USED TO OBTAIN COMPLETE MEDICAL HISTORY. I INDEPENDENTLY INTERPRETED THE TEST THAT WERE PERFORMED, RESULTS WERE REVIEWED BY ME AND CONSIDERED FINDINGS ON RADIOLOGY IF ORDERED. MEDICAL MANAGEMENT AND EXAMINATION INTERPRETATION DISCUSSIONS WERE HAD BY ME WITH OTHER QUALIFIED HEALTHCARE PROFESSIONALS INDICATED FOR THE PATIENT'S CARE. ED Course Orders Procedure Category Date Status Time Cbc With Differential LAB 07/29/24 Complete 17:50 Blood Cult HERB 07/29/24 In Process 17:50 Creatine Kinase, Total LAB 07/29/24 Complete 17:50 Troponin I High LAB 07/29/24 Complete Sensitivity 17:50 Lactic Acid LAB 07/29/24 Complete 17:50 Basic Metabolic Panel LAB 07/29/24 Complete 17:50 Covid Rna Naat LAB 07/29/24 Complete 17:50 Influenza Type A & B, LAB 07/29/24 Complete Rapid 17:50 Rapid (Group A Strep) LAB 07/29/24 Complete 18:38 Vital Signs Date Time Temp Pulse Resp B/P (MAP) Pulse Ox O2 Delivery O2 Flow Rate FiO2 07/29/24 20:22 99.3 92 19 120/53 99 Room Air* 0 21 07/29/24 17:55 99.7 100 24 118/79 98 Room Air 0 He inherited the patient from Dr. Woods and have reviewed his labs. The patient's viral workup is negative. The patient's chemistry abnormalities are chronic. The only surprise was the patient's high white blood cell count with left shift. I went to talk to the patient he said that two days ago he had two drops of urine and it felt like it burned a little bit. He has chronic renal failure and does not make urine, that is why the UA and urine culture have been canceled. The patient is currently on antibiotics for his presumed UTI. Patient feels really good his fever and chills the past his shortness of breath has passed he wants to go home. I agreed with this plan. I cautioned him to come back if his symptoms return or get worse. He told me he will be seeing his primary care doctor tomorrow. Patient cleared for discharge DX & DISP Disposition: Discharge Departure Impression: Primary Impression: UTI (urinary tract infection) Additional Impressions: ESRD (end stage renal disease) on dialysis, Hypertensive kidney disease with end-stage renal disease on dialysis Condition: Stable Referrals: ENEDINA GONG MD (PCP) RON WOODS MD Jul 29, 2024 19:01 KAMILLE HOYOS MD Jul 29, 2024 21:08
[2024-07-29 19:02] LABS: INFLUENZA TYPE A Negative For Type A (NEGATIVE); INFLUENZA TYPE B Negative For Type B (NEGATIVE)
--- NOTE | 2024-07-29 19:24 | NUR ---
PT DOES NOT PRODUCE URINE
--- NOTE | 2024-07-29 19:24 | NUR ---
UNABLE TO COLLECT U/A SPECIMEN, PATIENT DOES NOT URINATE
--- NOTE | 2024-07-29 20:15 | NUR ---
PT CARE ASSUMED AT THIS TIME
[2024-07-29 21:12] VITALS: BP 127/61; PULSE 86; RESP 19; TEMP 98.7; O2SAT 99
== END 2024-07-29 21:17 | disposition home or self-care (01) ==
LOC: EDH 17:25
DX: N39.0 Urinary tract infection, site not specified (principal); I12.0 Hypertensive chronic kidney disease with stage 5 chronic kidney disease or end stage renal disease; E11.22 Type 2 diabetes mellitus with diabetic chronic kidney disease; N18.6 End stage renal disease; Z79.02 Long term (current) use of antithrombotics/antiplatelets; Z79.899 Other long term (current) drug therapy; Z89.512 Acquired absence of left leg below knee; Z90.49 Acquired absence of other specified parts of digestive tract; Z99.2 Dependence on renal dialysis; Z20.822 Contact with and (suspected) exposure to COVID-19
CPT/HCPCS: 36415; 80048; 82550; 83605; 84484; 85025; 87040; 87086; 87186; 87635; 87804; 87880; 99283